=== PATIENT | female | born 1940 | race Caucasian/White ===

== ENCOUNTER → 2021-05-22 | Outpatient (CLI) | payer MEDICARE | END | disposition home or self-care (01) | LOC: RAH 11:15 | PROVIDERS: ATTEND Nurse Practitioner Adult Health | DX: E04.1 Nontoxic single thyroid nodule (principal); R91.1 Solitary pulmonary nodule | CPT/HCPCS: 76536 ==

== ENCOUNTER → 2021-05-26 | Outpatient (CLI) | payer MEDICARE | END | disposition home or self-care (01) | LOC: RAH 13:08 | PROVIDERS: ATTEND Nurse Practitioner Adult Health | DX: Z12.31 Encounter for screening mammogram for malignant neoplasm of breast (principal) | CPT/HCPCS: 77067 ==

== ENCOUNTER → 2022-12-25 | Outpatient (CLI) | payer OTHER | END | disposition home or self-care (01) | LOC: RAH 08:36 | PROVIDERS: ATTEND Nurse Practitioner Adult Health | DX: N64.4 Mastodynia (principal); Z80.3 Family history of malignant neoplasm of breast | CPT/HCPCS: 76641; 77066 ==

== ENCOUNTER → 2023-08-05 | Outpatient (CLI) | payer OTHER | END | disposition home or self-care (01) | LOC: OIH 09:22 | PROVIDERS: ATTEND Nurse Practitioner Adult Health | DX: Z13.6 Encounter for screening for cardiovascular disorders (principal); K44.9 Diaphragmatic hernia without obstruction or gangrene | CPT/HCPCS: 75571 ==

== ENCOUNTER → 2023-09-13 | Outpatient (CLI) | payer OTHER ==
[2023-09-13 16:36] LABS: BILIRUBIN,TOTAL 0.4 mg/dL (0.2-1.0)
== END | disposition home or self-care (01) ==
LOC: LAB 15:32
PROVIDERS: ATTEND Student in an Organized Health Care Education/Training Program
DX: R07.89 Other chest pain (principal)
CPT/HCPCS: 36415; 80053

== ENCOUNTER → 2023-09-24 | Outpatient (CLI) | payer OTHER ==
[~2023-09-24] MED LIST: IOHEXOL 350 MG/ML 100ML INFUS..BTL IV ONE
== END | disposition home or self-care (01) ==
LOC: RAH 10:09
PROVIDERS: ATTEND Student in an Organized Health Care Education/Training Program
DX: I25.10 Atherosclerotic heart disease of native coronary artery without angina pectoris (principal); R07.89 Other chest pain; M47.815 Spondylosis without myelopathy or radiculopathy, thoracolumbar region
CPT/HCPCS: 75574; Q9967

== ENCOUNTER → 2023-09-25 | Outpatient (CLI) | payer OTHER | END | disposition home or self-care (01) | LOC: SHCH 11:10 | PROVIDERS: ATTEND Student in an Organized Health Care Education/Training Program | DX: R09.89 Other specified symptoms and signs involving the circulatory and respiratory systems (principal) | CPT/HCPCS: 93880 ==

== ENCOUNTER → 2023-11-01 | Outpatient (CLI) | payer OTHER | END | disposition home or self-care (01) | LOC: SHCH 10:42 | PROVIDERS: ATTEND Student in an Organized Health Care Education/Training Program | DX: I11.9 Hypertensive heart disease without heart failure (principal); R07.89 Other chest pain; E78.5 Hyperlipidemia, unspecified | CPT/HCPCS: 93306 ==

== ENCOUNTER 2023-12-13 05:52 | Day surgery (SDC) | payer OTHER ==
[2023-12-10 10:05] LABS: BASOPHILS # (AUTO) 0.02 K/uL (0.00-0.20); BASOPHILS % (AUTO) 0.3 % (0.0-5.0); EOSINOPHILS # (AUTO) 0.11 K/uL (0.00-0.70); EOSINOPHILS % (AUTO) 1.6 % (0.0-8.0); HEMATOCRIT 41.5 % (36-48); IMMATURE GRANULOCYTE ABSOLUTE 0.02 K/uL (0-1); LYMPHOCYTES # (AUTO) 1.9 K/uL (1.0-4.8); LYMPHOCYTES % (AUTO) 26.8 % (21.0-51.0); MEAN CORPUSCULAR HEMOGLOBIN 30.1 pg (27.0-33.0); MEAN CORPUSCULAR VOLUME 91.2 fL (79-99); MONOCYTES # (AUTO) 0.4 K/uL (0.1-1.0); MONOCYTES % (AUTO) 6.3 % (3.0-13.0); NEUTROPHILS # (AUTO) 4.5 K/uL (1.8-7.7); NEUTROPHILS % (AUTO) 64.7 % (40.0-77.0); PLATELET COUNT (AUTO) 357 K/uL (130-400); RED BLOOD CELL COUNT(AUTO) 4.55 MIL/uL (4.00-5.50); RED CELL DISTRIBUTION WIDTH 13.2 % (11.0-15.5)
[2023-12-10 10:12] LABS: POTASSIUM 3.8 mmol/L (3.5-5.1)
[2023-12-10 10:13] LABS: INR 0.95 (0.85-1.15); PROTHROMBIN TIME 11.1 SEC (9.6-11.6)
[2023-12-10 10:14] LABS: PARTIAL THROMBOPLASTIN TIME 29.5 SEC (26.3-35.5)
[2023-12-10 10:16] LABS: ADD UA MICROSCOPIC YES; APPEARANCE,URINE CLEAR (CLEAR); BILIRUBIN,URINE NEGATIVE (NEGATIVE); COLOR,URINE LIGHT-YELLOW (YELLOW); GLUCOSE, URINE (UA) NEGATIVE (NEGATIVE); KETONES,URINE NEGATIVE (NEGATIVE); LEUKOCYTE ESTERASE ,URINE NEGATIVE Leu/uL (NEGATIVE); NITRATE,URINE NEGATIVE (NEGATIVE); PROTEIN,URINE NEGATIVE (NEGATIVE); UROBILINOGEN,URINE 0.2 mg/dL (0.2-1.0)
[2023-12-10 10:21] VITALS: BP 172/76; PULSE 61; RESP 15
[2023-12-10 10:22] LABS: BACTERIA,URINE RARE /HPF (None Seen); MUCUS,URINE RARE LPF (None Seen); SQUAMOUS EPITHELIAL CELL,UR FEW /HPF (0-2); WBC,URINE 0-1 /HPF (0-1)
[2023-12-10 10:32] LABS: B-TYPE NATRIURETIC PEPTIDE 38 pg/mL (0-100)
[~2023-12-13] VITALS: Ht 170.2 cm; Wt 80.3 kg
[2023-12-13] VITALS (10 sets, daily range): BP systolic 100–171; BP diastolic 32–62; PULSE 46–81; RESP 14–16
[~2023-12-13 05:52] MED LIST changes: +ASPI-1197 PO; +ATOR10 PO; -IOHEXOL 350 MG/ML 100ML INFUS..BTL IV ONE; +LISI20TA24 PO
[2023-12-13] MEDS ORDERED: ACET-3540 PO (06:40)
[2023-12-13] MEDS: 0.9%NACL 1000ML 1,000 ML IV ONE (06:47)
[2023-12-13] MEDS ORDERED: HEPARIN 10,000 UNIT/10ML (1,000 UNIT/ML) VIAL ONE (07:09)
[2023-12-13] MEDS ORDERED: VERAPAMIL HCL 2.5 MG/ML VIAL ONE (07:09)
[2023-12-13] MEDS ORDERED: LIDOCAINE HCL 400MG/20ML VIAL ONE (07:09)
[2023-12-13] MEDS ORDERED: IOHEXOL-350 75 ML VIAL IV ONE (07:09)
[2023-12-13] MEDS ORDERED: NITROGLYCERIN 50MG VIAL ONE (07:10)
[2023-12-13] MEDS ORDERED: MIDAZOLAM HCL 5 MG/ML 2ML VIAL IV ONE (07:23)
[2023-12-13] MEDS ORDERED: FENTANYL CITRATE PF 50 MCG/1 ML 2ML VIAL ONE (07:23)
[2023-12-13] MEDS ORDERED: HYDRALAZINE 20MG/ML VIAL ONE ×2 (08:18→08:31)
[2023-12-13] MEDS ORDERED: LABETALOL 20MG SYG IV ONE (08:22)
[2023-12-13] MEDS ORDERED: DEXTROSE 50%-WATER 50 ML DISP.SYRIN IV PRN (09:00)
[2023-12-13] MEDS ORDERED: GLUCAGON 1MG KIT 1 MG ML IM PRN (09:00)
== END 2023-12-13 12:20 | disposition home or self-care (01) ==
LOC: DAH 05:52
PROVIDERS: ATTEND Student in an Organized Health Care Education/Training Program
DX: I25.119 Atherosclerotic heart disease of native coronary artery with unspecified angina pectoris (principal); I77.1 Stricture of artery; Z79.82 Long term (current) use of aspirin; Z79.01 Long term (current) use of anticoagulants; Z79.899 Other long term (current) drug therapy; Z82.49 Family history of ischemic heart disease and other diseases of the circulatory system; Z80.9 Family history of malignant neoplasm, unspecified
CPT/HCPCS: 80048; 83880; 85025; 85610; 85730; 81001; 36415; 71045; 93005; 93458; C1769; C1887; C1894; A4649; J3010; J3490 ×3; J7030; J0360 ×2; J1644 ×2; J2250; Q9967; A4215; A4222; A4221; A4663; A4216; A4606; A4223 ×3; A4554; 99156; 99157

== ENCOUNTER → 2024-01-06 | Outpatient (CLI) | payer OTHER ==
[~2024-01-06] MED LIST changes: +ACET-3540 PO; +IOHEXOL 350 MG/ML 100ML INFUS..BTL IV ONE
== END | disposition home or self-care (01) ==
LOC: RAH 08:28
PROVIDERS: ATTEND Student in an Organized Health Care Education/Training Program
DX: I70.0 Atherosclerosis of aorta (principal); I77.1 Stricture of artery; K80.20 Calculus of gallbladder without cholecystitis without obstruction
CPT/HCPCS: 71275; Q9967

== ENCOUNTER 2025-07-16 19:29 | Observation (INO) | payer OTHER ==
[~2025-07-16] VITALS: Ht 165.1 cm; Wt 80.2 kg
[~2025-07-16 19:29] MED LIST changes: -IOHEXOL 350 MG/ML 100ML INFUS..BTL IV ONE
--- NOTE | 2025-07-16 19:38 | ERN ---
ED Note History of Present Illness Stated Complaint: ELEVATED BP Chief Complaint: Hypertension Time Seen by MD: 19:33 Dictation: PATIENT IS AN 84-YEAR-OLD FEMALE COMING IN WITH HER WITH COMPLAINTS OF ELEVATED BLOOD PRESSURE AND A SEVERE OCCIPITAL HEADACHE BILATERALLY FOR TWO DAYS. SHE STATES THE HEADACHE HAS GOTTEN PROGRESSIVELY WORSE AND STATES IT WAS A GRADUAL ONSET THE DAY IT OCCURRED BUT IT HAS NEVER GOTTEN BETTER. NIH IS 0 THERE HAS BEEN NO NAUSEA VOMITING NO DIARRHEA. SHE IS ON LISINOPRIL 20 MG STATES SHE IS COMPLIANT WITH HER MEDICATIONS. SHE DENIES HEAD TRAUMA FALLS OR BLOOD THINNERS. CURRENT BLOOD PRESSURE 212/87 IN TRIAGE Allergies: Coded Allergies: No Known Drug Allergies (Unverified Allergy, Unknown, 12/10/23) Home Meds Reported Medications Acetaminophen/Diphenhydramine (Tylenol Pm Exstr 500-25Mg Cplt) 500 Mg-25 Mg Tablet, 1 EACH PO HS, TAB 12/13/23 Atorvastatin Calcium (LIPITOR) 20 Mg Tab, 20 MG PO HS, TAB 12/10/23 Aspirin (Aspirin) 81 Mg Tab.chew, 81 MG PO AD, TAB.CHEW 12/10/23 Lisinopril (Lisinopril) 20 Mg Tablet, 20 MG PO AD, TAB 12/10/23 Review of System Dictation CONSTITUTIONAL: NO CHILLS, NO FEVER, NO WEAKNESS, NO DIAPHORESIS, NO MALAISE. HEAD/FACE: NO SIGNS OF TRAUMA. HEADACHE OCCIPITAL EENT: NO EYE PAIN, NO BLURRED VISION, NO TEARING, NO DOUBLE VISION, NO EAR PAIN, NO EAR DISCHARGE, NO NOSE PAIN, NO NASAL CONGESTION, NO THROAT PAIN, NO THROAT SWELLING, NO MOUTH PAIN. RESPIRATORY: NO COUGH, NO ORTHOPNEA, NO SOB, NO STRIDOR, NO WHEEZING. CARDIOVASCULAR: NO CHEST PAIN, NO EDEMA, NO PALPITATIONS, NO SYNCOPE. GASTROINTESTINAL/ABDOMINAL: NO ABDOMINAL PAIN, NO CONSTIPATION, NO DIARRHEA, NO NAUSEA, NO VOMITING. GENITOURINARY: NO ABNORMAL DISCHARGE, NO DYSURIA, NO FREQUENT URINATION, NO HEMATURIA. NO COMPLAINTS OF PAIN IN THE GENITALS. MUSCULOSKELETAL: NO BACK PAIN, NO GOUT, NO JOINT PAIN, NO JOINT SWELLING, NO MUSCLE PAIN, NO MUSCLE STIFFNESS, NO NECK PAIN. INTEGUMENTARY: NO CHANGE IN COLOR, NO CHANGE IN HAIR/NAILS, NO DRYNESS, NO LESION, NO LUMPS, NO RASH. NEUROLOGICAL/PSYCH: NO ANXIETY, NOT DEPRESSED, NO EMOTIONAL PROBLEM, NO HEADACHE, NO NUMBNESS, NO PRE-EXISTING DEFICIT, NO HISTORY OF SEIZURES, NO TREMORS, NO WEAKNESS. HEMATOLOGIC/LYMPHATIC: NOT ANEMIC, NO HISTORY OF BLOOD CLOTS, NO APPARENT BLEEDING, NO BRUISING, GLANDS NOT SWOLLEN. ALL SYSTEMS NEGATIVE, EXCEPT NOTED. Initial Vital Sign VS Vital Signs Date Time Temp Pulse Resp B/P (MAP) Pulse Ox O2 Delivery O2 Flow Rate FiO2 07/16/25 19:30 98.6 95 18 212/87 99 07/16/25 20:02 Room Air* 0 21 Physical Exam Dictation VITAL SIGNS: REVIEWED. GENERAL APPEARANCE: ALERT, ORIENTED X3, NO ACUTE DISTRESS, OBESE. HEAD AND FACE: NON-TRAUMATIC. EYES: PERRL, PINK CONJUNCTIVAS, EYELID NO TRAUMA, ANTERIOR CHAMBER CLEAR. EARS: PINNAS INTACT AND NO SIGNS OF TRAUMA OR ERYTHEMA. EAR CANALS CLEAR AND NO DISCHARGE. TMS NO ERYTHEMA. NOSE: NO DISCHARGE, NO BLEEDING. OROPHARYNX: MOUTH NORMAL, TEETH NO CARIES, TONGUE PINK. PHARYNX CLEAR, NO ERYTHEMA. TONSILS NO EXUDATES, NO ABSCESSES NOTED. MUCOUS MEMBRANE MOIST. NECK: SUPPLE, NON-TENDER, NO THYROMEGALY, NO MASSES, NO JVD, NO BRUITS. BREAST: DEFERRED. CHEST: NO TENDERNESS, NO CREPITUS, NO PARADOXICAL MOVEMENT, NO RETRACTIONS. LUNGS: CLEAR, WELL-VENTILATED, SYMMETRIC, NO RALES, NO WHEEZING, NO RHONCHI, NO STRIDOR, GOOD BREATH SOUNDS BILATERALLY. HEART: REGULAR RATE, REGULAR RHYTHM, NO MURMUR, NO GALLOPS. VASCULAR: NO PERIPHERAL EDEMA. ABDOMEN: SOFT, POSITIVE BOWEL SOUNDS, NONDISTENDED, NO GUARDING, NONTENDER, NO REBOUND, NO MASSES NO HEPATOMEGALY, NO SPLENOMEGALY, NO HARTMANN'S SIGN, NO HERNIAS. RECTAL: DEFERRED. GENITAL: DEFERRED. NEUROLOGICAL: NORMAL SPEECH, GROSS MOTOR FUNCTION INTACT, GROSS SENSORY FUNCTION INTACT. MUSCULOSKELETAL: NECK NONTENDER, FULL RANGE OF MOTION, BACK NONTENDER, FULL RANGE OF MOTION. EXTREMITIES: NONTENDER, FULL RANGE OF MOTION. SKIN: COLOR PINK, DRY, NO TURGOR, NO RASH, NO LACERATIONS, NO ABRASIONS, NO CONTUSIONS. LYMPHATICS: DEFERRED. Results (Laboratory/Radiology) Laboratory/Radiology Laboratory Tests Test 07/16/25 19:49 07/16/25 19:51 White Blood Count 12.4 K/uL (4.8-10.8) H Red Blood Count 4.48 MIL/uL (4.00-5.50) Hemoglobin 13.6 g/dL (12.0-16.0) Hematocrit 41.9 % (36-48) Mean Corpuscular Volume 93.5 fL (79-99) Mean Corpuscular Hemoglobin 30.4 pg (27.0-33.0) Mean Corpuscular Hemoglobin Concent 32.5 g/dL (32.0-36.0) Red Cell Distribution Width 13.3 % (11.0-15.5) Platelet Count 344 K/uL (130-400) Mean Platelet Volume 9.5 fL (7.5-10.5) Immature Granulocyte % (Auto) 0.2 % (0-1) Neutrophils (%) (Auto) 71.4 % (40.0-77.0) Lymphocytes (%) (Auto) 22.0 % (21.0-51.0) Monocytes (%) (Auto) 5.0 % (3.0-13.0) Eosinophils (%) (Auto) 1.2 % (0.0-8.0) Basophils (%) (Auto) 0.2 % (0.0-5.0) Neutrophils # (Auto) 8.8 K/uL (1.8-7.7) H Lymphocytes # (Auto) 2.7 K/uL (1.0-4.8) Monocytes # (Auto) 0.6 K/uL (0.1-1.0) Eosinophils # (Auto) 0.15 K/uL (0.00-0.70) Basophils # (Auto) 0.03 K/uL (0.00-0.20) Absolute Immature Granulocyte (auto 0.03 K/uL (0-1) Nucleated Red Blood Cells 0.0 % (0.0-0.19) Sodium Level 142 mmol/L (136-145) Potassium Level 3.6 mmol/L (3.5-5.1) Chloride Level 105 mmol/L (101-111) Carbon Dioxide Level 27 mmol/L (21-32) Blood Urea Nitrogen 17 mg/dL (7-18) Creatinine 0.9 mg/dL (0.5-1.0) Glomerular Filtration Rate Calc 64 mL/min (>90) Random Glucose 119 mg/dL (70-105) H Total Calcium 9.3 mg/dL (8.5-10.1) Troponin I High Sensitivity 6 ng/L (4-50) B-Type Natriuretic Peptide 81 pg/mL (0-100) Urine Color COLORLESS (YELLOW) Urine Appearance CLEAR (CLEAR) Urine pH 5.0 (5.0-8.0) Urine Specific [place] 1.009 (1.001-1.031) Urine Protein NEGATIVE mg/dL (NEGATIVE) Urine Glucose (UA) NEGATIVE mg/dL (NEGATIVE) Urine Ketones NEGATIVE mg/dL (NEGATIVE) Urine Occult Blood SMALL (NEGATIVE) H Urine Nitrate NEGATIVE (NEGATIVE) Urine Bilirubin NEGATIVE mg/dL (NEGATIVE) Urine Urobilinogen 0.2 mg/dL (0.2-1.0) Urine Leukocyte Esterase 75 Unique/uL (NEGATIVE) H Urine RBC 2-5 /HPF (0-1) H Urine WBC 2-5 /HPF (0-1) H Urine Squamous Epithelial Cells RARE /HPF (0-2) Urine Bacteria FEW /HPF (None Seen) Labs Reviewed?: Yes EKG Comment: 07/16/2025 time 7:33 p.m. Ventricular rate 92 Sinus rhythm NM [address] wave elevation or depression ED Course ED Course Orders Procedure Category Date Status Time Ct Head/Brain W/O CT 07/16/25 Taken Contrast 19:36 B-Type Natriuretic LAB 07/16/25 Complete Peptide 19:36 Cbc With Differential LAB 07/16/25 Complete 19:36 Troponin I High LAB 07/16/25 Complete Sensitivity 19:36 12 Lead Ekg Tracing- EKG 07/16/25 Logged Technical 19:36 Basic Metabolic Panel LAB 07/16/25 Complete 19:36 Urinalysis LAB 07/16/25 Complete W/Microscopic 19:39 Culture Urine DEMETRI 07/16/25 In Process 20:09 Labetalol 20mg Syg PHA 07/16/25 Complete (Trandate 20mg Syg) 20:30 0.9%Nacl 1000ml (Ns PHA 07/16/25 Complete 1000ml) 21:00 Diphenhydramine Hcl PHA 07/16/25 Complete (Benadryl Inj) 21:00 Prochlorperazine PHA 07/16/25 Complete 10mg/2ml Inj 21:00 Acetaminophen 500mg PHA 07/16/25 Complete Tab (Tylenol 500mg T 21:00 Ceftriaxone 1g Vial PHA 07/16/25 Complete (Rocephine 1g Inj) 21:00 Current Medications Medications (Trade) Dose Ordered Sig/Arianna Route PRN Reason Start Time Stop Time Status Last Admin Dose Admin Acetaminophen (TYLenol 500MG TAB) 500 mg ONCE ONCE PO 07/16/25 21:00 07/16/25 21:04 DC 07/16/25 21:27 Ceftriaxone Sodium (ROCEphine 1G INJ) 1 gm ONCE ONCE IVPB 07/16/25 21:00 07/16/25 21:04 DC 07/16/25 21:26 Diphenhydramine HCl (BENAdryl INJ) 25 mg ONCE ONCE IV 07/16/25 21:00 07/16/25 21:04 DC 07/16/25 21:27 Labetalol HCl (TRANdate 20MG SYG) 10 mg ONCE ONCE IV 07/16/25 20:30 07/16/25 20:31 DC 07/16/25 20:52 Prochlorperazine Edisylate (Compazine 10mg/ 2ml Inj) 10 mg ONCE ONCE IV 07/16/25 21:00 07/16/25 21:12 DC 07/16/25 21:27 Sodium Chloride 1,000 ml @ 0 mls/hr ONCE ONCE IV 07/16/25 21:00 07/16/25 21:04 DC 07/16/25 21:27 Vital Signs Date Time Temp Pulse Resp B/P (MAP) Pulse Ox O2 Delivery O2 Flow Rate FiO2 07/16/25 20:54 98.2 76 20 174/70 99 Room Air* 0 21 07/16/25 20:52 192/78 07/16/25 20:02 98.4 92 18 212/87 98 Room Air* 0 21 07/16/25 19:30 98.6 95 18 212/87 99 Medical Decision Making MDM MDM: DIFFERENTIAL DIAGNOSIS: DEHYDRATION, UTI, TENSION HEADACHE, MALIGNANT HYPE RTENSION, RATIONALE: TESTS CONSIDERED AND ORDERED SECONDARY TO SHARED DECISION MAKING INCLUDE: LABS, ECG AND RADIOLOGY PREVIOUS OUTSIDE RECORDS REVIEWED: OLD ER VISITS. RISK OF COMPLICATION AND/OR MORBIDITY OR MORTALITY OF PATIENT MANAGEMENT: NONE MEDICATIONS-PER MEDICATION RECONCILIATION NEED FOR HOSPITALIZATION: PATIENT DOES MEET CRITERIA FOR HOSPITALIZATION. NEED FOR EMERGENCY MAJOR/MINOR SURGERY: NO THERE ARE NO SOCIAL CONCERNS WITH THIS PATIENT. PRESCRIPTION DRUG MANAGEMENT PRESCRIPTIONS WILL INCLUDE SYMPTOMATIC CARE PATIENT'S PRIOR EXTERNAL MEDICAL RECORDS FROM OTHER ER VISITS WERE REVIEWED BY ME INDICATED. PRIOR TESTING AND RESULTS FROM PREVIOUS VISITS WERE REVIEWED. PRIOR TESTS WERE TAKEN INTO ACCOUNT WITH MEDICAL DECISION MAKING AND RESOURCE UTILIZATION, INDEPENDENT HISTORIAN/HISTORIANS WERE USED TO OBTAIN COMPLETE MEDICAL HISTORY. I INDEPENDENTLY INTERPRETED THE TEST THAT WERE PERFORMED, RESULTS WERE REVIEWED BY ME AND CONSIDERED FINDINGS ON RADIOLOGY IF ORDERED. MEDICAL MANAGEMENT AND EXAMINATION INTERPRETATION DISCUSSIONS WERE HAD BY ME WITH OTHER QUALIFIED HEALTHCARE PROFESSIONALS INDICATED FOR THE PATIENT'S CARE. HE WILL BE ADMITTED UNDER THE CARE OF HOSPITALIST GROUP FOR ONGOING MANAGEMENT. DX & DISP Disposition: Inpatient Decision to Admit Time: 21:49 Departure Impression: Primary Impression: UTI (urinary tract infection) Additional Impressions: Dehydration, Malignant hypertension, Tension headache Condition: Stable Referrals: [facility] CROWN POUNCER (PCP) LAWANDA FOX NP Jul 16, 2025 19:38 LETICIA PLASCENCIA MD Jul 16, 2025 19:42
[2025-07-16 20:02] LABS: IMMATURE GRANULOCYTE ABSOLUTE 0.03 K/uL (0-1); NUCLEATED RED BLOOD CELLS 0.0 % (0.0-0.19); PLATELET COUNT (AUTO) 344 K/uL (130-400); RED BLOOD CELL COUNT(AUTO) 4.48 MIL/uL (4.00-5.50); RED CELL DISTRIBUTION WIDTH 13.3 % (11.0-15.5); WHITE BLOOD COUNT (AUTO) 12.4 K/uL (4.8-10.8)
[2025-07-16 20:05] LABS: APPEARANCE,URINE CLEAR (CLEAR); GLUCOSE, URINE (UA) NEGATIVE (NEGATIVE); LEUKOCYTE ESTERASE ,URINE 75 Leu/uL (NEGATIVE); NITRATE,URINE NEGATIVE (NEGATIVE); OCCULT BLOOD,URINE SMALL (NEGATIVE)
[2025-07-16 20:17] LABS: CREATININE 0.9 mg/dL (0.5-1.0); GLOMERULAR FILTR. RATE CALC 64.0 mL/min (>90); GLUCOSE,RANDOM 119.0 mg/dL (70-105); SODIUM SERUM 142.0 mmol/L (136-145); UREA NITROGEN, BLOOD 17.0 mg/dL (7-18)
[2025-07-16 20:33] LABS: SQUAMOUS EPITHELIAL CELL,UR RARE /HPF (0-2)
[2025-07-16] MEDS: PROCHLORPERAZINE 10MG/2ML INJ IV ONE (21:27)
[2025-07-16] MEDS: 0.9%NACL 1000ML 1,000 ML IV ONE (21:27)
--- NOTE | 2025-07-16 21:53 | HMCIMG ---
EXAM: CT Head Without IV contrast. CLINICAL HISTORY: Severe occipital headache for 2 days. TECHNIQUE: Axial computed tomography images of the head/brain without intravenous contrast. COMPARISON: None provided. FINDINGS: BRAIN: Diffuse age-related cerebral atrophy, characterized by dilatation of the lateral ventricles, prominence of the basal cisterns, cortical sulci, and bilateral sylvian fissures. Ill-defined hypodensities in the bilateral periventricular and frontal white matter, likely representing chronic small vessel ischemic changes. No evidence of acute hemorrhage. No mass lesion. No CT evidence for acute territorial infarct. No midline shift or extra-axial collections. VENTRICLES: No hydrocephalus. ORBITS: The orbits are unremarkable. SINUSES AND MASTOIDS: The paranasal sinuses and mastoid air cells are clear. BONES: No fracture. SOFT TISSUES: Unremarkable. IMPRESSION: No acute intracranial abnormality. Diffuse age-related cerebral atrophy. Ill-defined hypodensities in the bilateral periventricular and frontal white matter, likely representing chronic small vessel ischemic changes. /[place]
--- NOTE | 2025-07-16 22:59 | HP ---
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 Latest vital signs temperature 98.2, heart rate 72, blood pressure 180/75 saturation 99% on room air. Labs: WBC 12, hemoglobin 13, hematocrit 41, platelet count 344. Glucose 119 troponin six BNP 81 the rest of the chemistries normal. Urinalysis positive with esterase, urine RBC 2-5, urine WBC 2-5 with few urine bacteria. EKG result revealed sinus rhythm heart rate 92. CT head without contrast result revealed no acute intracranial abnormality. Diffuse age-related cerebral atrophy. Defined hypodensities in the bilateral periventricular and frontal white matter, likely representing chronic small- vessel ischemic changes. NIHS score=0 While in the ER patient received labetalol 10 mg IV, NS bolus 1 L, D-hydro mean 25 mg IV, Compazine 10 mg IV Tylenol 500 mg p.o. and Rocephin 1 g IV. We will admit patient for further medical management. REVIEW OF SYSTEMS CONSTITUTIONAL: Denies fevers, chills, or night sweats. No unintentional weight loss reported. NEUROLOGICAL: Complains of headache Deniesamaurosis fugax, motor weakness, sensory deficit, vertigo/spinning sensation, gait abnormalities, or tremors. ENT: No hearing loss, otalgia, otorrhea, rhinitis, rhinorrhea, hoarseness, or sore throat. CARDIOVASCULAR: Denies any exertional angina, dyspnea on exertion, orthopnea, paroxysmal nocturnal dyspnea, palpitations, life-threatening arrhythmias, claudication. PULMONARY: Denies any shortness of breath, cough, phlegm/sputum, hemoptysis, pleuritic chest pain. SLEEP: Denies morning headaches, daytime somnolence or napping. Denies difficulty falling asleep, staying asleep, waking from sleep. Denies knowledge of snoring. GASTROINTESTINAL: Denies any type of dysphagia to either liquids or solids. Denies nausea, vomiting, pyrosis, early satiety, abdominal pain, diarrhea, constipation, or changes in stool consistency or caliber. Denies coffee-ground emesis, hematemesis, hematochezia, or melanotic stools. GENITOURINARY: Denies frequency, urgency, nocturia, hematuria or incontinence (Storage/Irritative symptoms.) Low urinary stream, straining to void, urinary intermittency or hesitancy, splitting of the voiding stream, terminal dribbling. ENDOCRINOLOGIC: Denies polyuria, polydipsia, polyphagia or heat/cold intolerances. HEMATOLOGIC: Denies thrombophilia/previous clots, or coagulopathy/bleeding disorders. ONCOLOGIC: Denies personal history of malignancy. DERMATOLOGIC: Denies rashes or pruritus. PSYCHIATRIC: Denies any suicidal or homicidal ideation. Denies hallucinations. PAST MEDICAL HISTORY: [ Hypertension and hyperlipidemia ] PAST SURGICAL HISTORY: [Bladder lift and skin cancer removal ] PAST SOCIAL HISTORY: [ Patient lives with . Patient denies alcohol tobacco and recreational drug use ] FAMILY HISTORY: [ Diabetes, cardiovascular disease and cancer] Coded Allergies: No Known Drug Allergies (Unverified Allergy, Unknown, 12/10/23) PHYSICAL EXAM GENERAL APPEARANCE: The patient is awake, alert, and oriented, in no acute cardiopulmonary distress. NEUROLOGICAL: Cranial nerves II-XII grossly intact. Motor is 5/5 in bilateral upper and lower extremities proximal to distal. No sensory deficits. HEENT: Face is symmetric. Pupils are equal and reactive. Extraocular movements are intact. NECK: Supple. No JVD. No thyromegaly. No submental, submandibular, pre- /postauricular, occipital or supraclavicular lymphadenopathy. CHEST: Normal chest expansion. No Telemetry. LUNGS: Absence of any rales, rhonchi or any wheezing. CARDIOVASCULAR: Regular. S1 and S2 normal. No appreciable rubs, murmurs or gallops. ABDOMEN: Soft, nontender, and nondistended. There is no rebound, voluntary guarding, or rigidity. : Deferred. No Garcia. EXTREMITIES: Non-edematous and not cyanotic. No clubbing. Good capillary refill. SKIN: No skin breakdown. Vital Sign (Last 24 Hours) 07/16/25 22:32 Temp 98.2 Pulse 72 Resp 20 B/P (MAP) 180/75 Pulse Ox 99 O2 Delivery Room Air* O2 Flow Rate 0 FiO2 21 LABS: Laboratory: Test 07/16/25 19:51 07/16/25 19:49 Range/Units Urine Color COLORLESS YELLOW Urine Appearance CLEAR CLEAR Urine pH 5.0 5.0-8.0 Urine Specific [place] 1.009 1.001-1.031 Urine Protein NEGATIVE NEGATIVE mg/dL Urine Glucose (UA) NEGATIVE NEGATIVE mg/dL Urine Ketones NEGATIVE NEGATIVE mg/dL Urine Occult Blood SMALL H NEGATIVE Urine Nitrate NEGATIVE NEGATIVE Urine Bilirubin NEGATIVE NEGATIVE mg/dL Urine Urobilinogen 0.2 0.2-1.0 mg/dL Urine Leukocyte Esterase 75 H NEGATIVE Unique/uL Urine RBC 2-5 H 0-1 /HPF Urine WBC 2-5 H 0-1 /HPF Urine Squamous Epithelial Cells RARE 0-2 /HPF Urine Bacteria FEW None Seen /HPF White Blood Count 12.4 H 4.8-10.8 K/uL Red Blood Count 4.48 4.00-5.50 MIL/uL Hemoglobin 13.6 12.0-16.0 g/dL Hematocrit 41.9 36-48 % Mean Corpuscular Volume 93.5 79-99 fL Mean Corpuscular Hemoglobin 30.4 27.0-33.0 pg Mean Corpuscular Hemoglobin Concent 32.5 32.0-36.0 g/dL Red Cell Distribution Width 13.3 11.0-15.5 % Platelet Count 344 130-400 K/uL Mean Platelet Volume 9.5 7.5-10.5 fL Immature Granulocyte % (Auto) 0.2 0-1 % Neutrophils (%) (Auto) 71.4 40.0-77.0 % Lymphocytes (%) (Auto) 22.0 21.0-51.0 % Monocytes (%) (Auto) 5.0 3.0-13.0 % Eosinophils (%) (Auto) 1.2 0.0-8.0 % Basophils (%) (Auto) 0.2 0.0-5.0 % Neutrophils # (Auto) 8.8 H 1.8-7.7 K/uL Lymphocytes # (Auto) 2.7 1.0-4.8 K/uL Monocytes # (Auto) 0.6 0.1-1.0 K/uL Eosinophils # (Auto) 0.15 0.00-0.70 K/uL Basophils # (Auto) 0.03 0.00-0.20 K/uL Absolute Immature Granulocyte (auto 0.03 0-1 K/uL Nucleated Red Blood Cells 0.0 0.0-0.19 % Sodium Level 142 136-145 mmol/L Potassium Level 3.6 3.5-5.1 mmol/L Chloride Level 105 101-111 mmol/L Carbon Dioxide Level 27 21-32 mmol/L Blood Urea Nitrogen 17 7-18 mg/dL Creatinine 0.9 0.5-1.0 mg/dL Glomerular Filtration Rate Calc 64 >90 mL/min Random Glucose 119 H 70-105 mg/dL Total Calcium 9.3 8.5-10.1 mg/dL Troponin I High Sensitivity 6 4-50 ng/L B-Type Natriuretic Peptide 81 0-100 pg/mL DIAGNOSTICS / RADIOLOGY: [ ] ASSESSMENT: Hypertensive urgency POA Acute urinary tract infection POA Tension headache POA Hyperlipidemia POA PLAN: We will admit patient in P[facility]U We will start on heart healthy diet We will start on famotidine 20 mg p.o. daily We will continue Rocephin 1 g IV daily for empiric coverage We will replace electrolytes as needed per protocol We will add prn medication for fever,pain,cough , elevated blood pressure, nausea and vomiting We will reconcile home meds once medlist available We will request neuro check q.4 hours per nursing We will seek Cardiology consultation We will request labs in am Further orders to follow depending on above results Case discussed with attending physician and came up with above treatment and plan of care. ADVANCED CARE PLANNING 1. Which of the following were discussed? Hospice Care - No Therapeutic options - Yes Advance Directives - No Other discussions - 2. Discussed with who? Patient 3. Voluntary nature of this service was explained to the patient? Yes 4. Amount of time spent - __23 min 5. Reviewed by Physician? (if this service was performed by NPP) Yes Patient seen and examined by me. Agree with note by AGRICULTURE RESEARCH DIRECTOR SEE ADDITIONAL ORDERS PER CHART DISCUSSED WITH NURSING STAFF JENELLE SCHMITZ INNER TUBE CUTTER Jul 16, 2025 22:59
[2025-07-16] MEDS ORDERED: NITROGLYCERIN 0.4 MG SL TAB SL PRN (23:00)
[2025-07-16] MEDS ORDERED: PoTASSium chl 10% ELIXIR 20MEQ 20 MEQ/15 ML UDCUP PO PRN (23:00)
[2025-07-16] MEDS ORDERED: PoTASSium chloRIDE 20MEQ ER 20 MEQ ERTAB PO PRN (23:00)
--- NOTE | 2025-07-17 01:36 | NUR ---
assume care of patient at this time
[2025-07-17] MEDS: HYDROcodone/APAP 5/325 1 TAB TABLET PO PRN (03:55)
[2025-07-17 05:52] LABS: IMMATURE GRANULOCYTE ABSOLUTE 0.03 K/uL (0-1); NUCLEATED RED BLOOD CELLS 0.0 % (0.0-0.19); PLATELET COUNT (AUTO) 335 K/uL (130-400); RED BLOOD CELL COUNT(AUTO) 4.09 MIL/uL (4.00-5.50); RED CELL DISTRIBUTION WIDTH 13.2 % (11.0-15.5); WHITE BLOOD COUNT (AUTO) 11.0 K/uL (4.8-10.8)
[2025-07-17 06:08] LABS: ASPARTATE AMINOTRANSFERASE 28.0 U/L (10-37); CREATININE 0.6 mg/dL (0.5-1.0); GLOMERULAR FILTR. RATE CALC 90.0 mL/min (>90); GLUCOSE,RANDOM 137.0 mg/dL (70-105); SODIUM SERUM 143.0 mmol/L (136-145); TOTAL PROTEIN, SERUM 6.7 g/dL (6.0-8.3); UREA NITROGEN, BLOOD 13.0 mg/dL (7-18)
[2025-07-17 06:09] LABS: INR 1.01 (0.85-1.15)
[2025-07-17 06:13] LABS: ERYTHROCYTE SEDIMENTATION RATE 30 MM/HR (0-30)
--- NOTE | 2025-07-17 07:15 | EKG ---
[facility] Test Date: 2025-07-16 Test Time: 19:33:48 Pat Name: OK VAUGHN Department: [facility] Room: 227 Gender: F Rn Family: [id number] Requested By: LAWANDA FOX Order Number: [id number] Reading MD: Leola Webb Measurements Intervals [place] Rate: 92 P: 43 MS: 168 QRS: -27 QRSD: 81 T: 0 QT: 372 QTc: 461 Interpretive Statements Sinus rhythm Anterolateral infarct, old Compared to ECG 12/10/2023 09:48:22 Myocardial infarct finding now present Electronically Signed On 07-18-2025 09:35:30 CDT by Leola Webb Please click the below link to view image of tracing.
--- NOTE | 2025-07-17 08:00 | NUR ---
ADMINISTERED PATIENTS HOME BP MED DUE TO ELEAVTED BLOOD PRESSURE OF 204/79, PATIENT RESTING IN BED, CALL LIGHT IN REACH
--- NOTE | 2025-07-17 08:59 | NUR ---
RECHECK WAS 176/72 AFTER ADMINISTRATION OF PATIENTS HOME BP MED, PATIENT RESTING IN BED, CALL LIGHT IN REACH
[2025-07-17] MEDS: FAMOTIDINE 20MG TAB PO SCH (09:34)
--- NOTE | 2025-07-17 09:49 | CONS ---
[facility] CARDIOLOGY CONSULTATION REPORT Cardiology consultation note dictated for Sergo Magallanes MD Primary bicycle i assembler: Marlen Whittington MD Date Patient Seen: Jul 17, 2025 Requesting Physician: Melinda Elliott MD Reason for Consultation: Hypertensive urgency History of Present Illness: This is an 89-year-old female with a past medical history of hypertension, hyperlipidemia, CT coronary calcification score of 474.8, coronary CTA on 09/27/2023 with a CAD-RADs: 4B with recommendations for a LHC, LHC/coronary angiogram on 12/13/2023 with 20-30% proximal stenosis of the LAD, 2D echo on 11/01/2023 with an LVEF of 55-60%, normal LV segmental wall motion, stage I diastolic dysfunction, with no valvular pathology, and bradycardia on carvedilol who presented to the ED with complaints of headache and elevated blood pressure for 2 days in duration. Laboratories revealed leukocytosis with WBC of 12.4K/uL on admission and urinalysis demonstrated small leukocytes. She is receiving Rocephin 1g IV daily. Cardiology has been consulted for hypertensive urgency. The patient endorsed a moderate to severe headache with neck discomfort for less than one week and on the day of admission, her home SBP reached 160-170's prompting her to seek medical attention. She reports her baseline home SBPs range 130-150's. Blood pressure on admission was 212/87mmHg. CTA of the head on 07/16/2025 was without acute abnormality. Cardiac enzymes were negative x2. EKG demonstrated NSR with a hr of 92bpm with no acute ischemia. BNP of 32. Home medications have not been reconciled. Past Medical History: As per HPI and summarized below Past Surgical History: Skin cancer excision 05/2025 Family History: The patient's mother had valve surgery and her father had cancer. Social History: The patient lives with her . Habits: The patient denies tobacco or illicit drug use and an occasional wine cooler consumption. Home Meds: Amlodipine-benazepril 5-40 mg daily Atorvastatin 20 mg nightly Current Meds: Medications Dose Ordered Sig/Arianna Start Time Stop Time Status Last Admin Acetaminophen 650 mg Q6H PRN 07/16/25 23:00 08/15/25 22:59 Acetaminophen 650 mg Q4H PRN 07/16/25 23:00 08/15/25 22:59 07/17/25 09:34 Nitroglycerin 0.4 mg PROTOCOL PRN 07/16/25 23:00 08/15/25 22:59 Famotidine 20 mg DAILY 07/17/25 09:00 08/16/25 08:59 07/17/25 09:34 Acetaminophen/ Hydrocodone Bitart 1 tab Q4H PRN 07/16/25 23:00 07/21/25 22:59 07/17/25 03:55 Hydralazine HCl 10 mg Q6H PRN 07/16/25 23:00 08/15/25 22:59 Magnesium Sulfate 50 ml @ 0 mls/hr PROTOCOL PRN 07/16/25 23:00 08/15/25 22:59 Potassium Chloride 100 ml @ 100 mls/hr AD PRN 07/16/25 23:00 08/15/25 22:59 Potassium Chloride 20 meq AD PRN 07/16/25 23:00 08/15/25 22:59 Potassium Chloride 20 meq AD PRN 07/16/25 23:00 08/15/25 22:59 Labetalol HCl 10 mg Q6H PRN 07/16/25 23:00 08/15/25 22:59 07/17/25 00:45 Ceftriaxone Sodium 1 gm Q24H 07/16/25 23:30 07/26/25 23:29 07/17/25 00:44 Review of Systems: CONST: Admits to headache and neck discomfort. EYES: No recent vision problems. ENT: No congestion, ear pain, or sore throat. C/V: No chest pain, palpitations, or edema. RESP: No cough, congestion, wheezing or shortness of breath. GI: No abdominal pain, nausea, vomiting, constipation, or diarrhea. : No incontinence or dysuria. SKIN: No rash. NEURO: No headache, focal numbness or weakness, dizziness, or seizures. PSYCH: No depression or anxiety. HEME: No abnormal bruising or bleeding. LYMPH: No swollen glands. Physical Examination: GENERAL: No acute distress. HEAD: Normal with no signs of head trauma. EYES: PERRLA, EOMI, conjunctiva and sclera normal. ENT: Hearing grossly intact, normal oropharynx. NECK: Supple without JVD. Normal carotid upstrokes without bruits. Limited ROM noted. LUNGS: Clear breath sounds bilaterally. No wheezes, or rhonchi. HEART: Normal rate and rhythm. Normal S1 and S2 without murmurs, gallop or rub. VASC: Peripheral pulses +2 bilaterally. ABD: Bowel sounds normal, soft, nontender, no masses, no organomegaly. No audible bruits. : Not examined LYMPH: No lymphadenopathy noted. EXT: No clubbing, cyanosis or edema. SKIN: No rashes or lesions noted. NEURO: Awake, alert, and oriented x3. No focal sensory or strength deficits noted. Vital Signs (last 8hr) Date Time Temp Pulse Resp B/P (MAP) Pulse Ox O2 Delivery O2 Flow Rate FiO2 07/17/25 08:56 98.1 76 18 204/79 98 Room Air* 0 21 07/17/25 05:44 98.1 63 20 147/67 97 Room Air* 0 21 07/17/25 05:05 98.1 64 20 151/63 97 Room Air* 0 21 07/17/25 04:10 98.2 72 20 180/66 99 Room Air* 0 21 Laboratory: Hematology Labs: Test 07/17/25 05:27 Range/Units White Blood Count 11.0 H 4.8-10.8 K/uL Red Blood Count 4.09 4.00-5.50 MIL/uL Hemoglobin 12.7 12.0-16.0 g/dL Hematocrit 37.9 36-48 % Mean Corpuscular Volume 92.7 79-99 fL Mean Corpuscular Hemoglobin 31.1 27.0-33.0 pg Mean Corpuscular Hemoglobin Concent 33.5 32.0-36.0 g/dL Red Cell Distribution Width 13.2 11.0-15.5 % Platelet Count 335 130-400 K/uL Mean Platelet Volume 9.8 7.5-10.5 fL Immature Granulocyte % (Auto) 0.3 0-1 % Neutrophils (%) (Auto) 78.9 H 40.0-77.0 % Lymphocytes (%) (Auto) 14.7 L 21.0-51.0 % Monocytes (%) (Auto) 5.4 3.0-13.0 % Eosinophils (%) (Auto) 0.5 0.0-8.0 % Basophils (%) (Auto) 0.2 0.0-5.0 % Neutrophils # (Auto) 8.7 H 1.8-7.7 K/uL Lymphocytes # (Auto) 1.6 1.0-4.8 K/uL Monocytes # (Auto) 0.6 0.1-1.0 K/uL Eosinophils # (Auto) 0.05 0.00-0.70 K/uL Basophils # (Auto) 0.02 0.00-0.20 K/uL Absolute Immature Granulocyte (auto 0.03 0-1 K/uL Nucleated Red Blood Cells 0.0 0.0-0.19 % Erythrocyte Sedimentation Rate 30 0-30 MM/HR Chemistry Labs: Test 07/17/25 05:27 07/16/25 19:49 Range/Units Sodium Level 143 136-145 mmol/L Potassium Level 4.8 3.5-5.1 mmol/L Chloride Level 107 101-111 mmol/L Carbon Dioxide Level 26 21-32 mmol/L Blood Urea Nitrogen 13 7-18 mg/dL Creatinine 0.6 0.5-1.0 mg/dL Glomerular Filtration Rate Calc 90 >90 mL/min Random Glucose 137 H 70-105 mg/dL Total Calcium 8.6 8.5-10.1 mg/dL Magnesium Level 1.60 L 1.80-2.40 mg/dL Total Bilirubin 0.4 0.2-1.0 mg/dL Aspartate Amino Transf (AST/SGOT) 28 10-37 U/L Alanine Aminotransferase (ALT/SGPT) 20 12-78 U/L Alkaline Phosphatase 109 50-136 U/L Troponin I High Sensitivity 32 4-50 ng/L Total Protein 6.7 6.0-8.3 g/dL Albumin 3.7 3.5-5.0 g/dL B-Type Natriuretic Peptide 81 0-100 pg/mL Coagulation Labs: Test 07/17/25 05:27 Range/Units Prothrombin Time 10.7 9.6-11.6 SEC Prothromb Time International Ratio 1.01 0.85-1.15 Activated Partial Thromboplast Time 27.8 26.3-35.5 SEC Diagnostics / Radiology: Impression and Plan: Hypertensive urgency Home SBP reached 160-170's She reports her baseline home SBPs range 130-150's Blood pressure on admission was 212/87mmHg CTA of the head on 07/16/2025 was without acute abnormality -She received her home Amlodipine-benazepril 5-40mg daily medication while in the ED this morning -Will add Amlodipine 5mg po x 1 now, then increase to 7.5mg daily -Discontinue Benazepril and transition to Losartan 100mg daily -Start Spironolactone 50mg po x1 then 25mg daily -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 UTI Urinalysis 07/16/2025 demonstrated small leukocytes Leukocytosis with WBC of 12.4K/uL on admission, now 11.0K/uL -Continue Rocephin 1g IV daily Cervicalgia -Give Toradol 15mg IV x1 Comorbidities: Hyperlipidemia CT coronary calcification score of 474.8 Coronary CTA on 09/27/2023 with a CAD-RADs: 4B with recommendations for a LHC LHC/coronary angiogram on 12/13/2023 with 20-30% proximal stenosis of the LAD 2D echo on 11/01/2023 an LVEF of 55-60%, normal LV segmental wall motion, stage I diastolic dysfunction, and no valvular pathology Bradycardia on Carvedilol PHYSICIAN ATTESTATION OF PHYSICIAN PYROTECHNICS PRESS TENDER DOCUMENTATION: I attest that I was physically present for the logan portions of the service and evaluated the patient with the Physician Project Buyer, and I reviewed and discussed the case with the Physician Project Buyer and made modifications to the Physician Project Buyer's findings and plans of care as documented above TRISTAN GARCIA Jul 17, 2025 09:49 SERGO MAGALLANES MD Jul 19, 2025 09:09
[2025-07-17] MEDS: amLODIPine 5 MG TAB PO ONE ×2 (10:59→11:04)
[2025-07-17] MEDS ORDERED: TRAM100T34 PO (11:09)
[2025-07-17] MEDS ORDERED: AMLO-143 PO (11:09)
[2025-07-17] MEDS: SPIRONOLACTONE 25 MG TAB PO ONE (12:58)
--- NOTE | 2025-07-17 13:40 | PN ---
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 She takes amlodipine 2.5mg and benazepril 40mg. Patient also reports she had a cardiac cath done last 11/2023 and was told all her coronaries are normal.On examination patient remained awake,alert and coherent,continue to complain of headache 5/10 pain level located around her occipital region.Patient denies dizziness,visual disturbance,fall incident,numbness or weakness.Patient denies chest pain,palpitation,cough ,nausea,vomiting and shortness of breath . Latest vital signs temperature 98.2, heart rate 72, blood pressure 180/75 saturation 99% on room air. Labs: WBC 12, hemoglobin 13, hematocrit 41, platelet count 344. Glucose 119 troponin six BNP 81 the rest of the chemistries normal. Urinalysis positive with esterase, urine RBC 2-5, urine WBC 2-5 with few urine bacteria. EKG result revealed sinus rhythm heart rate 92. CT head without contrast result revealed no acute intracranial abnormality. Diffuse age-related cerebral atrophy. Defined hypodensities in the bilateral periventricular and frontal white matter, likely representing chronic small-vessel ischemic changes. NIHS score=0 While in the ER patient received labetalol 10 mg IV, NS bolus 1 L, D- hydro mean 25 mg IV, Compazine 10 mg IV Tylenol 500 mg p.o. and Rocephin 1 g IV. The patient is admitted for further management. 07/17/2025: Patient is seen and evaluated in the ED. She is complaining of headache. Her blood pressure is 204/79 and blood pressure in the afternoon is 180/76. Her labs are in the normal range except for magnesium is 1.60. Urine cultures were sent. 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 REVIEW OF SYSTEMS CONSTITUTIONAL: Denies fevers, chills, or night sweats. No unintentional weight loss reported. NEUROLOGICAL: Complains of headache Deniesamaurosis fugax, motor weakness, sensory deficit, vertigo/spinning sensation, gait abnormalities, or tremors. ENT: No hearing loss, otalgia, otorrhea, rhinitis, rhinorrhea, hoarseness, or sore throat. CARDIOVASCULAR: Denies any exertional angina, dyspnea on exertion, orthopnea, paroxysmal nocturnal dyspnea, palpitations, life-threatening arrhythmias, claudication. PULMONARY: Denies any shortness of breath, cough, phlegm/sputum, hemoptysis, pleuritic chest pain. SLEEP: Denies morning headaches, daytime somnolence or napping. Denies diffic ulty falling asleep, staying asleep, waking from sleep. Denies knowledge of snoring. GASTROINTESTINAL: Denies any type of dysphagia to either liquids or solids. Denies nausea, vomiting, pyrosis, early satiety, abdominal pain, diarrhea, constipation, or changes in stool consistency or caliber. Denies coffee-ground emesis, hematemesis, hematochezia, or melanotic stools. GENITOURINARY: Denies frequency, urgency, nocturia, hematuria or incontinence (Storage/Irritative symptoms.) Low urinary stream, straining to void, urinary intermittency or hesitancy, splitting of the voiding stream, terminal dribbling. ENDOCRINOLOGIC: Denies polyuria, polydipsia, polyphagia or heat/cold into lerances. HEMATOLOGIC: Denies thrombophilia/previous clots, or coagulopathy/bleeding disorders. ONCOLOGIC: Denies personal history of malignancy. DERMATOLOGIC: Denies rashes or pruritus. PSYCHIATRIC: Denies any suicidal or homicidal ideation. Denies hallucinations. PHYSICAL EXAM GENERAL APPEARANCE: The patient is awake, alert, and oriented, in no acute cardiopulmonary distress. NEUROLOGICAL: Cranial nerves II-XII grossly intact. Motor is 5/5 in bilateral upper and lower extremities proximal to distal. No sensory deficits. HEENT: Face is symmetric. Pupils are equal and reactive. Extraocular movements are intact. NECK: Supple. No JVD. No thyromegaly. No submental, submandibular, pre- /postauricular, occipital or supraclavicular lymphadenopathy. CHEST: Normal chest expansion. No Telemetry. LUNGS: Absence of any rales, rhonchi or any wheezing. CARDIOVASCULAR: Regular. S1 and S2 normal. No appreciable rubs, murmurs or gallops. ABDOMEN: Soft, nontender, and nondistended. There is no rebound, voluntary guarding, or rigidity. : Deferred. No Garcia. EXTREMITIES: Non-edematous and not cyanotic. No clubbing. Good capillary refill. SKIN: No skin breakdown. Vital Signs (last 8hr) Date Time Temp Pulse Resp B/P (MAP) Pulse Ox O2 Delivery O2 Flow Rate FiO2 07/17/25 12:52 98.1 76 19 180/76 96 Room Air* 0 21 07/17/25 08:56 98.1 76 18 204/79 98 Room Air* 0 21 07/17/25 05:44 98.1 63 20 147/67 97 Room Air* 0 21 LABS: Laboratory: Test 07/17/25 05:27 07/16/25 19:51 07/16/25 19:49 Range/Units White Blood Count 11.0 H 4.8-10.8 K/uL Red Blood Count 4.09 4.00-5.50 MIL/uL Hemoglobin 12.7 12.0-16.0 g/dL Hematocrit 37.9 36-48 % Mean Corpuscular Volume 92.7 79-99 fL Mean Corpuscular Hemoglobin 31.1 27.0-33.0 pg Mean Corpuscular Hemoglobin Concent 33.5 32.0-36.0 g/dL Red Cell Distribution Width 13.2 11.0-15.5 % Platelet Count 335 130-400 K/uL Mean Platelet Volume 9.8 7.5-10.5 fL Immature Granulocyte % (Auto) 0.3 0-1 % Neutrophils (%) (Auto) 78.9 H 40.0-77.0 % Lymphocytes (%) (Auto) 14.7 L 21.0-51.0 % Monocytes (%) (Auto) 5.4 3.0-13.0 % Eosinophils (%) (Auto) 0.5 0.0-8.0 % Basophils (%) (Auto) 0.2 0.0-5.0 % Neutrophils # (Auto) 8.7 H 1.8-7.7 K/uL Lymphocytes # (Auto) 1.6 1.0-4.8 K/uL Monocytes # (Auto) 0.6 0.1-1.0 K/uL Eosinophils # (Auto) 0.05 0.00-0.70 K/uL Basophils # (Auto) 0.02 0.00-0.20 K/uL Absolute Immature Granulocyte (auto 0.03 0-1 K/uL Nucleated Red Blood Cells 0.0 0.0-0.19 % Erythrocyte Sedimentation Rate 30 0-30 MM/HR Prothrombin Time 10.7 9.6-11.6 SEC Prothromb Time International Ratio 1.01 0.85-1.15 Activated Partial Thromboplast Time 27.8 26.3-35.5 SEC Sodium Level 143 136-145 mmol/L Potassium Level 4.8 3.5-5.1 mmol/L Chloride Level 107 101-111 mmol/L Carbon Dioxide Level 26 21-32 mmol/L Blood Urea Nitrogen 13 7-18 mg/dL Creatinine 0.6 0.5-1.0 mg/dL Glomerular Filtration Rate Calc 90 >90 mL/min Random Glucose 137 H 70-105 mg/dL Total Calcium 8.6 8.5-10.1 mg/dL Magnesium Level 1.60 L 1.80-2.40 mg/dL Total Bilirubin 0.4 0.2-1.0 mg/dL Aspartate Amino Transf (AST/SGOT) 28 10-37 U/L Alanine Aminotransferase (ALT/SGPT) 20 12-78 U/L Alkaline Phosphatase 109 50-136 U/L Troponin I High Sensitivity 32 4-50 ng/L Total Protein 6.7 6.0-8.3 g/dL Albumin 3.7 3.5-5.0 g/dL Urine Color COLORLESS YELLOW Urine Appearance CLEAR CLEAR Urine pH 5.0 5.0-8.0 Urine Specific [place] 1.009 1.001-1.031 Urine Protein NEGATIVE NEGATIVE mg/dL Urine Glucose (UA) NEGATIVE NEGATIVE mg/dL Urine Ketones NEGATIVE NEGATIVE mg/dL Urine Occult Blood SMALL H NEGATIVE Urine Nitrate NEGATIVE NEGATIVE Urine Bilirubin NEGATIVE NEGATIVE mg/dL Urine Urobilinogen 0.2 0.2-1.0 mg/dL Urine Leukocyte Esterase 75 H NEGATIVE Unique/uL Urine RBC 2-5 H 0-1 /HPF Urine WBC 2-5 H 0-1 /HPF Urine Squamous Epithelial Cells RARE 0-2 /HPF Urine Bacteria FEW None Seen /HPF B-Type Natriuretic Peptide 81 0-100 pg/mL Current Medications Medications (Trade) Dose Ordered Sig/Arianna Route PRN Reason Start Time Stop Time Status Last Admin Dose Admin Acetaminophen (TYLenol 325MG TAB) 650 mg Q4H PRN PO MILD PAIN (1-3) 07/16/25 23:00 08/15/25 22:59 07/17/25 09:34 650 MG Acetaminophen (TYLenol 325MG TAB) 650 mg Q6H PRN PO TEMPERATURE GREATER THAN 101.5 07/16/25 23:00 08/15/25 22:59 Acetaminophen/ Hydrocodone Bitart (NORco 5/325MG) 1 tab Q4H PRN PO MODERATE PAIN (4-6) 07/16/25 23:00 07/21/25 22:59 07/17/25 03:55 1 TAB Amlodipine Besylate (NorvASC 5MG TAB) 7.5 mg DAILY PO 07/18/25 09:00 08/17/25 08:59 Amlodipine Besylate (NorvASC 5MG TAB) 10 mg DAILY PO 07/18/25 09:00 07/17/25 12:50 DC Benazepril HCl (LoTENSin) 40 mg DAILY PO 07/18/25 09:00 07/17/25 12:50 DC Ceftriaxone Sodium 2 gm/ Sodium Chloride 100 ml @ 200 mls/hr Q24H IV 07/16/25 23:00 07/16/25 23:25 DC Ceftriaxone Sodium (ROCEphine 1G INJ) 1 gm Q24H IVPB 07/16/25 23:30 07/26/25 23:29 07/17/25 00:44 1 GM Famotidine (Pepcid 20mg Tab) 20 mg DAILY PO 07/17/25 09:00 08/16/25 08:59 07/17/25 09:34 20 MG Hydralazine HCl (APRESOLine 20MG INJ) 10 mg Q6H PRN IV For:SBP above 160;DBP above 90 07/16/25 23:00 08/15/25 22:59 Ketorolac Tromethamine (toRADol) 15 mg ONCE STAT IV 07/17/25 10:12 07/17/25 10:16 DC 07/17/25 10:59 15 MG Ketorolac Tromethamine (toRADol) 15 mg ONCE STAT IV 07/17/25 10:39 07/17/25 10:45 DC Labetalol HCl (TRANdate 20MG SYG) 10 mg Q6H PRN IV IF SBP GREATER THAN 170 07/16/25 23:00 08/15/25 22:59 07/17/25 00:45 10 MG Lisinopril (Prinivil 40mg) 40 mg DAILY PO 07/18/25 09:00 07/17/25 10:37 DC Losartan Potassium (CozAAR 100MG TAB) 100 mg DAILY PO 07/18/25 09:00 08/17/25 08:59 Magnesium Sulfate 50 ml @ 0 mls/hr PROTOCOL PRN IV OTHER [SEE ORDER COMMENTS] 07/16/25 23:00 08/15/25 22:59 Nitroglycerin (Nitrostat) 0.4 mg PROTOCOL PRN SL CHEST PAIN 07/16/25 23:00 08/15/25 22:59 Potassium Chloride 100 ml @ 100 mls/hr AD PRN IV POTASSIUM PROTOCOL 07/16/25 23:00 08/15/25 22:59 Potassium Chloride (K-Dur/Klor-Con 20meq) 20 meq AD PRN PO POTASSIUM PROTOCOL 07/16/25 23:00 08/15/25 22:59 Potassium Chloride (KCl 10% Elixir 20meq/15ml) 20 meq AD PRN PO POTASSIUM PROTOCOL 07/16/25 23:00 08/15/25 22:59 Spironolactone (Aldactone 25mg) 25 mg DAILY PO 07/18/25 09:00 08/17/25 08:59 DIAGNOSTICS / RADIOLOGY: [place] [id number] [place] [place] [id number] IMAGING REPORT Signed PATIENT: OK VAUGHN V MR#: [id number] : 1940 SEX: F AGE: 84 LOCATION: ED ORDER 36 STATUS: REG ER REPORT#: [id number] SERVICE 35 REASON: SEVERE OCCIPITAL HEADACHE FOR TWO DAYS ORDERING PHYSICIAN: LAWANDA FOX NP PROCEDURE: HEAD WO - CT HEAD/BRAIN W/O CONTRAST EXAM: CT Head Without IV contrast. CLINICAL HISTORY: Severe occipital headache for 2 days. TECHNIQUE: Axial computed tomography images of the head/brain without intravenous contrast. COMPARISON: None provided. FINDINGS: BRAIN: Diffuse age-related cerebral atrophy, characterized by dilatation of the lateral ventricles, prominence of the basal cisterns, cortical sulci, and bilateral sylvian fissures. Ill-defined hypodensities in the bilateral periventricular and frontal white matter, likely representing chronic small vessel ischemic changes. No evidence of acute hemorrhage. No mass lesion. No CT evidence for acute territorial infarct. No midline shift or extra-axial collections. VENTRICLES: No hydrocephalus. ORBITS: The orbits are unremarkable. SINUSES AND MASTOIDS: The paranasal sinuses and mastoid air cells are clear. BONES: No fracture. SOFT TISSUES: Unremarkable. IMPRESSION: No acute intracranial abnormality. Diffuse age-related cerebral atrophy. Ill-defined hypodensities in the bilateral periventricular and frontal white matter, likely representing chronic small vessel ischemic changes. /[place] DICTATED BY: BERTHA NEUMANN Jr., MD DATE: 07/16/252251 ELECTRONICALLY SIGNED BY: BERTHA NEUMANN Jr., MD DATE: 07/16/252251 ASSESSMENT: Hypertensive urgency POA Acute urinary tract infection POA Tension headache POA Hyperlipidemia POA Hypomagnesemia PLAN: Hypertensive urgency POA Today her blood pressure is 204/79, repeat blood pressure is 180/76. She takes amlodipine 2.5mg and benazepril 40mg at home. 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 Avoid foods rich in sodium. Her blood pressure will be monitored. Acute urinary tract infection POA Her urinalysis show trace occult blood, leukocyte esterase 75, RBC is 2 to 5, WBC 2 to 5. Urine is sent for culture. She is started on ceftriaxone 1g. Continue ceftriaxone (day 1). Tension headache POA She is complaining of headache. Continue IV acetaminophen PRN. Hyperlipidemia POA Continue Atorvastatin. Ordered lipid panel. Hypomagnesemia Today her labs show that her magnesium level is 1.60. We replaced the magnesium. Will repeat her labs tomorrow. She is started on heart healthy diet. Gi prophylaxis with famotidine. DVT prophylaxis with SCD. ATTESTATION BY PHYSICIAN I have seen and examined the patient. I reviewed the documentation, medical decision making, and treatment plan as noted by the resident provider above. I agree with the findings and plan of care. Yong Li MD, AKSHAY MD Jul 17, 2025 13:40
--- NOTE | 2025-07-17 13:49 | NUR ---
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 Pt reports se remains active and independent of self care, home management, meal prep. t uses no DME or HH at this time. PCP is Sonja Camp and Marlen Whittington. Pt denies need for SNf, wants to reurn home at dc Addendum: 07/17/25 at 1354 by BRIAN LOPEZ SS Amended: Links added.
--- NOTE | 2025-07-17 14:31 | NUR ---
CALLED AND GAVE REPORT TO JANELLE LANDEROS RN SENT WITH PATIENT
[2025-07-17 15:00] VITALS: BP 162/48; PULSE 85; RESP 20; TEMP 98.7
[2025-07-17 15:19] VITALS: O2SAT 99
[2025-07-17 17:31] VITALS: BP 156/64; PULSE 84
[2025-07-17] MEDS: MAGNESIUM 2GM PREMIX 50ML 50 ML IV PRN (18:35)
[2025-07-17 19:52] VITALS: BP 154/74; PULSE 96; RESP 18; TEMP 98
[2025-07-17 20:40] VITALS: O2SAT 95
[2025-07-17 23:37] VITALS: BP 182/77; PULSE 89; RESP 18; TEMP 97.8
[2025-07-18 01:00] VITALS: BP 147/66
[2025-07-18 03:59] VITALS: BP 145/69; PULSE 78; RESP 18; TEMP 97.6
[2025-07-18 05:12] LABS: NUCLEATED RED BLOOD CELLS 0.0 % (0.0-0.19); PLATELET COUNT (AUTO) 353.0 K/uL (130-400); RED BLOOD CELL COUNT(AUTO) 4.27 MIL/uL (4.00-5.50); RED CELL DISTRIBUTION WIDTH 13.5 % (11.0-15.5); WHITE BLOOD COUNT (AUTO) 13.1 K/uL (4.8-10.8)
[2025-07-18 05:44] LABS: ASPARTATE AMINOTRANSFERASE 16.0 U/L (10-37); CREATININE 0.7 mg/dL (0.5-1.0); GLOMERULAR FILTR. RATE CALC 86.0 mL/min (>90); GLUCOSE,RANDOM 129.0 mg/dL (70-105); LDL DIRECT 66.0 mg/dL (0-99); SODIUM SERUM 141.0 mmol/L (136-145); TOTAL PROTEIN, SERUM 7.2 g/dL (6.0-8.3); UREA NITROGEN, BLOOD 16.0 mg/dL (7-18)
[2025-07-18 08:00] VITALS: BP 154/75; PULSE 80; RESP 17; TEMP 97.8
--- NOTE | 2025-07-18 08:26 | PN ---
[facility] CARDIOLOGY PROGRESS NOTE Date Patient Seen: Jul 18, 2025 Time of Visit: 08:19 Interval History: This is an 89-year-old female with a past medical history of hypertension, hyperlipidemia, CT coronary calcification score of 474.8, coronary CTA on 09/27 with a CAD-RADs: 4B with recommendations for a LHC, LHC/coronary angiogram on 12/13/2023 with 20-30% proximal stenosis of the LAD, 2D echo on 11/01/2023 with an LVEF of 55-60%, normal LV segmental wall motion, stage I diastolic dysfunction, with no valvular pathology, and bradycardia on carvedilol who presented to the ED with complaints of headache and elevated blood pressure for 2 days in duration. Laboratories revealed leukocytosis with WBC of 12.4K/uL on admission and urinalysis demonstrated small leukocytes. She is receiving Rocephin 1g IV daily. The patient endorsed a moderate to severe headache with neck discomfort for less than one week and on the day of admission, her home SBP reached 160-170's prompting her to seek medical attention. She reports her baseline home SBPs range 130-150's. Blood pressure on admission was 212/87mmHg. CTA of the head on 07/16/2025 was without acute abnormality. Cardiac enzymes were negative x2. EKG demonstrated NSR with a hr of 92bpm with no acute ischemia. BNP of 32. Medications were adjusted to include amlodipine 7.5 mg daily, losartan 100 mg daily and the addition of [id number] mg p.o. daily. Overnight, she has had intermittent headache with blood pressure into the 180 systolic range. She received hydralazine PRN. She is just to receive her 2nd doses of her new regimen today. A bilateral renal artery Doppler exam has been done and results are currently pending. Physical Examination: GENERAL: No acute distress. HEAD: Normal with no signs of head trauma. EYES: PERRLA, EOMI, conjunctiva and sclera normal. NECK: Supple without JVD. There is no tenderness, lymphadenopathy, or masses. No thyromegaly. Normal carotid upstrokes without bruits. LUNGS: Clear breath sounds bilaterally. No wheezes, or rhonchi. HEART: Normal rate and rhythm. Normal S1 and S2 without murmurs, gallop or rub. VASC: Peripheral pulses +2 bilaterally. EXT: No clubbing, cyanosis or edema. NEURO: Awake, alert, and oriented x3. No focal neurological deficits noted. Laboratory: Hematology Labs: Test 07/18/25 04:47 07/17/25 05:27 Range/Units White Blood Count 13.1 H 4.8-10.8 K/uL Red Blood Count 4.27 4.00-5.50 MIL/uL Hemoglobin 12.9 12.0-16.0 g/dL Hematocrit 39.3 36-48 % Mean Corpuscular Volume 92.0 79-99 fL Mean Corpuscular Hemoglobin 30.2 27.0-33.0 pg Mean Corpuscular Hemoglobin Concent 32.8 32.0-36.0 g/dL Red Cell Distribution Width 13.5 11.0-15.5 % Platelet Count 353 130-400 K/uL Mean Platelet Volume 9.5 7.5-10.5 fL Nucleated Red Blood Cells 0.0 0.0-0.19 % Immature Granulocyte % (Auto) 0.3 0-1 % Neutrophils (%) (Auto) 78.9 H 40.0-77.0 % Lymphocytes (%) (Auto) 14.7 L 21.0-51.0 % Monocytes (%) (Auto) 5.4 3.0-13.0 % Eosinophils (%) (Auto) 0.5 0.0-8.0 % Basophils (%) (Auto) 0.2 0.0-5.0 % Neutrophils # (Auto) 8.7 H 1.8-7.7 K/uL Lymphocytes # (Auto) 1.6 1.0-4.8 K/uL Monocytes # (Auto) 0.6 0.1-1.0 K/uL Eosinophils # (Auto) 0.05 0.00-0.70 K/uL Basophils # (Auto) 0.02 0.00-0.20 K/uL Absolute Immature Granulocyte (auto 0.03 0-1 K/uL Erythrocyte Sedimentation Rate 30 0-30 MM/HR Chemistry Labs: Test 07/18/25 04:47 07/17/25 05:27 07/16/25 19:49 Range/Units Sodium Level 141 136-145 mmol/L Potassium Level 3.9 3.5-5.1 mmol/L Chloride Level 105 101-111 mmol/L Carbon Dioxide Level 24 21-32 mmol/L Blood Urea Nitrogen 16 7-18 mg/dL Creatinine 0.7 0.5-1.0 mg/dL Glomerular Filtration Rate Calc 86 >90 mL/min Random Glucose 129 H 70-105 mg/dL Total Calcium 9.2 8.5-10.1 mg/dL Magnesium Level 2.20 1.80-2.40 mg/dL Total Bilirubin 0.5 # 0.2-1.0 mg/dL Aspartate Amino Transf (AST/SGOT) 16 10-37 U/L Alanine Aminotransferase (ALT/SGPT) 18 12-78 U/L Alkaline Phosphatase 110 50-136 U/L Total Protein 7.2 6.0-8.3 g/dL Albumin 3.6 3.5-5.0 g/dL Triglycerides Level 56 30-200 mg/dL Cholesterol Level 123 <200 mg/dL LDL Cholesterol 66 0-99 mg/dL HDL Cholesterol 47 35-85 mg/dL Troponin I High Sensitivity 32 4-50 ng/L B-Type Natriuretic Peptide 81 0-100 pg/mL Coagulation Labs: Test 07/17/25 05:27 Range/Units Prothrombin Time 10.7 9.6-11.6 SEC Prothromb Time International Ratio 1.01 0.85-1.15 Activated Partial Thromboplast Time 27.8 26.3-35.5 SEC Diagnostics / Radiology: Bilateral renal artery Doppler exam is currently pending Impression and Plan: Hypertensive urgency: CTA of the head on 07/16/2025 was without acute abnormality: -continue with increased dose of amlodipine 7.5 mg p.o. daily -benazepril has been discontinued and transitioned to losartan 100 mg p.o. daily -continue [id number] mg daily -follow-up on bilateral renal artery Doppler exam. If renal artery Doppler exam is negative, she will be cleared for discharge home from cardiology standpoint -arrange follow-up with Dr. Marlen Whittington in one-week after discharge with blood pressure log UTI Urinalysis 07/16/2025 demonstrated small leukocytes -Continue Rocephin 1g IV daily Cervicalgia: -analgesics as needed and consider C-spine imaging if persists Comorbidities: Hyperlipidemia CT coronary calcification score of 474.8 Coronary CTA on 09/27/2023 with a CAD-RADs: 4B with recommendations for a LHC LHC/coronary angiogram on 12/13/2023 with 20-30% proximal stenosis of the LAD 2D echo on 11/01/2023 an LVEF of 55-60%, normal LV segmental wall motion, stage I diastolic dysfunction, and no valvular pathology Bradycardia on Carvedilol If bilateral renal artery Doppler exam is unremarkable, we will clear patient for discharge from cardiology standpoint Home with amlodipine 7.5 mg p.o. daily, losartan 100 mg daily and spironolactone 25 mg p.o. daily Follow-up with Dr. Marlen Whittington in 1 week with blood pressure readings from home PHYSICIAN ATTESTATION OF PHYSICIAN CLAIM TECHNICIAN DOCUMENTATION: I attest that I was physically present for the logan portions of the service and evaluated the patient with the Physician Motor Block Mechanic, and I reviewed and discussed the case with the Physician Motor Block Mechanic and made modifications to the Physician Motor Block Mechanic's findings and plans of care as documented above MARCIA MILLER Jul 18, 2025 08:26 CHERI IBARRA MD Jul 19, 2025 09:08
[2025-07-18] MEDS ORDERED: LISINOPRIL 40 MG TABLET PO SCH (09:00)
[2025-07-18] MEDS ORDERED: amLODIPine 5 MG TAB PO SCH (09:00)
[2025-07-18] MEDS: SPIRONOLACTONE 25 MG TAB PO SCH (09:04)
[2025-07-18] MEDS: amLODIPine 5 MG TAB PO SCH (09:07)
[2025-07-18 10:25] VITALS: O2SAT 95
--- NOTE | 2025-07-18 10:54 | HMCIMG ---
EXAM: Renal Artery Duplex Doppler Ultrasound CLINICAL HISTORY: Resistant hypertension. Evaluate for renal artery stenosis. TECHNIQUE: Real-time duplex Doppler evaluation of the bilateral renal arteries, segmental arteries, kidneys, and aorta with color and spectral waveform analysis. COMPARISON: None provided. FINDINGS: AORTA: Peak systolic velocity (PSV): 145 cm/s. RIGHT KIDNEY: Measures 10.0 ??? 4.0 ??? 3.8 cm. PSV (main renal artery): 138 cm/s. Renal-aortic ratio (RAR): 1.0. Segmental arteries (superior, mid, and inferior poles): Waveforms within normal limits. No tardus-parvus pattern. LEFT KIDNEY: Measures 9.8 ??? 5.3 ??? 4.1 cm. PSV (main renal artery): 197 cm/s. RAR: 1.4. Segmental arteries (superior, mid, and inferior poles): Waveforms within normal limits. No tardus-parvus pattern. BLADDER: Not fully distended (wall 1.5 mm). Visualization is limited by bowel gas and intestinal air. IMPRESSION: No sonographic evidence of hemodynamically significant renal artery stenosis. Both kidneys are normal in size with preserved intrarenal arterial waveforms. /[place]
[2025-07-18 12:00] VITALS: BP 152/59; PULSE 67; RESP 17; TEMP 97.6
[2025-07-18] MEDS ORDERED: LOSA100T59 PO (13:49)
[2025-07-18] MEDS ORDERED: SPIR25TA6 PO (13:49)
[2025-07-18] MEDS ORDERED: AMLO-257 PO (13:49)
[2025-07-18] MEDS ORDERED: AMLO2.5T4 PO (13:49)
[2025-07-18] MEDS ORDERED: AMOX-426 PO (15:40)
--- NOTE | 2025-07-18 17:10 | DS ---
Discharge Summary Hospital Course Summary: Patient information: Name: Blanca Silver V Date of : 1940 Admission date: 07/16/2025 Attending physician: Dr. Josh Pittman Admitting diagnosis: Hypertensive urgency POA Acute urinary tract infection POA Tension headache POA Hyperlipidemia POA Course in hospital: This is an 84 year old female ,a reliable historian with past medical history of hypertension and hyperlipidemia who presents to the ED with complaints of elevated blood pressure and severe headache onset 2 days ago.Patient reports initially pain was tolerable but has gradually increasing as days progressed and today she described pain as excruciating so she decided to come to the Ed for evaluation.Patient reports her document imaging specialist is and had seen her 2 months ago and had adjusted her medication for BP. She takes amlodipine 2.5mg and benazepril 40mg. Patient also reports she had a cardiac cath done last 11/2023 and was told all her coronaries are normal.On examination patient remained awake,alert and coherent,continue to complain of headache 5/10 pain level located around her occipital region.Patient denies dizziness,visual disturbance,fall incident,numbness or weakness.Patient denies chest pain,palpitation,cough ,nausea,vomiting and shortness of breath . Latest vital signs temperature 98.2, heart rate 72, blood pressure 180/75 saturation 99% on room air. Labs: WBC 12, hemoglobin 13, hematocrit 41, platelet count 344. Glucose 119 troponin six BNP 81 the rest of the chemistries normal. Urinalysis positive with esterase, urine RBC 2-5, urine WBC 2-5 with few urine bacteria. EKG result revealed sinus rhythm heart rate 92. CT head without contrast result revealed no acute intracranial abnormality. Diffuse age-related cerebral atrophy. Defined hypodensities in the bilateral periventricular and frontal white matter, likely representing chronic small-vessel ischemic changes. NIHS score=0 While in the ER patient received labetalol 10 mg IV, NS bolus 1 L, D-hydro mean 25 mg IV, Compazine 10 mg IV Tylenol 500 mg p.o. and Rocephin 1 g IV. The patient was admitted for further management. Urine culture was sent and it showed 10,000 to 46211 CFU. 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 With the changes in the medications had blood pressure is in the normal range. Bilateral renal artery Doppler showed no evidence of hemodynamically significant renal artery stenosis. On 07/18/2025, complained of cervical pain from occipital region to the neck, vitals are in the normal range and labs are normal except for WBC is 13.1. Her cervical pain is controlled with Tylenol. Cardiology cleared the patient for discharge and advised him to follow-up in their clinic. She is medically stable and ready for discharge. So we discharged her. Principal Biostatistician(s): CONSULTATION REPORT Name: BLANCA SILVER V Acct: [id number] MR: [id number] : 1940 Admit Date: 07/16/25 TRISTAN GARCIA [facility] [address] [place] [address] [id number] [facility] CARDIOLOGY CONSULTATION REPORT Cardiology consultation note dictated for Sergo Magallanes MD Primary document imaging specialist: Marlen Whittington MD Date Patient Seen: Jul 17, 2025 Requesting Physician: Patricio Elliott MD Reason for Consultation: Hypertensive urgency History of Present Illness: This is an 89-year-old female with a past medical history of hypertension, hyp erlipidemia, CT coronary calcification score of 474.8, coronary CTA on 09/27/2023 with a CAD-RADs: 4B with recommendations for a LHC, LHC/coronary angiogram on 12/13/2023 with 20-30% proximal stenosis of the LAD, 2D echo on 11/01/2023 with an LVEF of 55-60%, normal LV segmental wall motion, stage I diastolic dysfunction, with no valvular pathology, and bradycardia on carvedilol who presented to the ED with complaints of headache and elevated blood pressure for 2 days in duration. Laboratories revealed leukocytosis with WBC of 12.4K/uL on admission and urinalysis demonstrated small leukocytes. She is receiving Rocephin 1g IV daily. Cardiology has been consulted for hypertensive urgency. The patient endorsed a moderate to severe headache with neck discomfort for less than one week and on the day of admission, her home SBP reached 160-170's prompting her to seek medical attention. She reports her baseline home SBPs range 130-150's. Blood pressure on admission was 212/87mmHg. CTA of the head on 07/16/2025 was without acute abnormality. Cardiac enzymes were negative x2. EKG demonstrated NSR with a hr of 92bpm with no acute ischemia. BNP of 32. Home medications have not been reconciled. Past Medical History: As per HPI and summarized below Past Surgical History: Skin cancer excision 05/2025 Family History: The patient's mother had valve surgery and her father had cancer. Social History: The patient lives with her . Habits: The patient denies tobacco or illicit drug use and an occasional wine cooler consumption. Home Meds: Amlodipine-benazepril 5-40 mg daily Atorvastatin 20 mg nightly Current Meds: Medications Dose Ordered Sig/Arianna Start Time Stop Time Status Last Admin Acetaminophen 650 mg Q6H PRN 07/16/25 23:00 08/15/25 22:59 Acetaminophen 650 mg Q4H PRN 07/16/25 23:00 08/15/25 22:59 07/17/25 09:34 Nitroglycerin 0.4 mg PROTOCOL PRN 07/16/25 23:00 08/15/25 22:59 Famotidine 20 mg DAILY 07/17/25 09:00 08/16/25 08:59 07/17/25 09:34 Acetaminophen/ Hydrocodone Bitart 1 tab Q4H PRN 07/16/25 23:00 07/21/25 22:59 07/17/25 03:55 Hydralazine HCl 10 mg Q6H PRN 07/16/25 23:00 08/15/25 22:59 Magnesium Sulfate 50 ml @ 0 mls/hr PROTOCOL PRN 07/16/25 23:00 08/15/25 22:59 Potassium Chloride 100 ml @ 100 mls/hr AD PRN 07/16/25 23:00 08/15/25 22:59 Potassium Chloride 20 meq AD PRN 07/16/25 23:00 08/15/25 22:59 Potassium Chloride 20 meq AD PRN 07/16/25 23:00 08/15/25 22:59 Labetalol HCl 10 mg Q6H PRN 07/16/25 23:00 08/15/25 22:59 07/17/25 00:45 Ceftriaxone Sodium 1 gm Q24H 07/16/25 23:30 07/26/25 23:29 07/17/25 00:44 Review of Systems: CONST: Admits to headache and neck discomfort. EYES: No recent vision problems. ENT: No congestion, ear pain, or sore throat. C/V: No chest pain, palpitations, or edema. RESP: No cough, congestion, wheezing or shortness of breath. GI: No abdominal pain, nausea, vomiting, constipation, or diarrhea. : No incontinence or dysuria. SKIN: No rash. NEURO: No headache, focal numbness or weakness, dizziness, or seizures. PSYCH: No depression or anxiety. HEME: No abnormal bruising or bleeding. LYMPH: No swollen glands. Physical Examination: GENERAL: No acute distress. HEAD: Normal with no signs of head trauma. EYES: PERRLA, EOMI, conjunctiva and sclera normal. ENT: Hearing grossly intact, normal oropharynx. NECK: Supple without JVD. Normal carotid upstrokes without bruits. Limited ROM noted. LUNGS: Clear breath sounds bilaterally. No wheezes, or rhonchi. HEART: Normal rate and rhythm. Normal S1 and S2 without murmurs, gallop or rub. VASC: Peripheral pulses +2 bilaterally. ABD: Bowel sounds normal, soft, nontender, no masses, no organomegaly. No audible bruits. : Not examined LYMPH: No lymphadenopathy noted. EXT: No clubbing, cyanosis or edema. SKIN: No rashes or lesions noted. NEURO: Awake, alert, and oriented x3. No focal sensory or strength deficits noted. Vital Signs (last 8hr) Date Time Temp Pulse Resp B/P (MAP) Pulse Ox O2 Delivery O2 Flow Rate FiO2 07/17/25 08:56 98.1 76 18 204/79 98 Room Air* 0 21 07/17/25 05:44 98.1 63 20 147/67 97 Room Air* 0 21 07/17/25 05:05 98.1 64 20 151/63 97 Room Air* 0 21 07/17/25 04:10 98.2 72 20 180/66 99 Room Air* 0 21 Laboratory: Hematology Labs: Test 07/17/25 05:27 Range/Units White Blood Count 11.0 H 4.8-10.8 K/uL Red Blood Count 4.09 4.00-5.50 MIL/uL Hemoglobin 12.7 12.0-16.0 g/dL Hematocrit 37.9 36-48 % Mean Corpuscular Volume 92.7 79-99 fL Mean Corpuscular Hemoglobin 31.1 27.0-33.0 pg Mean Corpuscular Hemoglobin Concent 33.5 32.0-36.0 g/dL Red Cell Distribution Width 13.2 11.0-15.5 % Platelet Count 335 130-400 K/uL Mean Platelet Volume 9.8 7.5-10.5 fL Immature Granulocyte % (Auto) 0.3 0-1 % Neutrophils (%) (Auto) 78.9 H 40.0-77.0 % Lymphocytes (%) (Auto) 14.7 L 21.0-51.0 % Monocytes (%) (Auto) 5.4 3.0-13.0 % Eosinophils (%) (Auto) 0.5 0.0-8.0 % Basophils (%) (Auto) 0.2 0.0-5.0 % Neutrophils # (Auto) 8.7 H 1.8-7.7 K/uL Lymphocytes # (Auto) 1.6 1.0-4.8 K/uL Monocytes # (Auto) 0.6 0.1-1.0 K/uL Eosinophils # (Auto) 0.05 0.00-0.70 K/uL Basophils # (Auto) 0.02 0.00-0.20 K/uL Absolute Immature Granulocyte (auto 0.03 0-1 K/uL Nucleated Red Blood Cells 0.0 0.0-0.19 % Erythrocyte Sedimentation Rate 30 0-30 MM/HR Chemistry Labs: Test 07/17/25 05:27 07/16/25 19:49 Range/Units Sodium Level 143 136-145 mmol/L Potassium Level 4.8 3.5-5.1 mmol/L Chloride Level 107 101-111 mmol/L Carbon Dioxide Level 26 21-32 mmol/L Blood Urea Nitrogen 13 7-18 mg/dL Creatinine 0.6 0.5-1.0 mg/dL Glomerular Filtration Rate Calc 90 >90 mL/min Random Glucose 137 H 70-105 mg/dL Total Calcium 8.6 8.5-10.1 mg/dL Magnesium Level 1.60 L 1.80-2.40 mg/dL Total Bilirubin 0.4 0.2-1.0 mg/dL Aspartate Amino Transf (AST/SGOT) 28 10-37 U/L Alanine Aminotransferase (ALT/SGPT) 20 12-78 U/L Alkaline Phosphatase 109 50-136 U/L Troponin I High Sensitivity 32 4-50 ng/L Total Protein 6.7 6.0-8.3 g/dL Albumin 3.7 3.5-5.0 g/dL B-Type Natriuretic Peptide 81 0-100 pg/mL Coagulation Labs: Test 07/17/25 05:27 Range/Units Prothrombin Time 10.7 9.6-11.6 SEC Prothromb Time International Ratio 1.01 0.85-1.15 Activated Partial Thromboplast Time 27.8 26.3-35.5 SEC Diagnostics / Radiology: Impression and Plan: Hypertensive urgency Home SBP reached 160-170's She reports her baseline home SBPs range 130-150's Blood pressure on admission was 212/87mmHg CTA of the head on 07/16/2025 was without acute abnormality -She received her home Amlodipine-benazepril 5-40mg daily medication while in the ED this morning -Will add Amlodipine 5mg po x 1 now, then increase to 7.5mg daily -Discontinue Benazepril and transition to Losartan 100mg daily -Start Spironolactone 50mg po x1 then 25mg daily -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 UTI Urinalysis 07/16/2025 demonstrated small leukocytes Leukocytosis with WBC of 12.4K/uL on admission, now 11.0K/uL -Continue Rocephin 1g IV daily Cervicalgia -Give Toradol 15mg IV x1 Comorbidities: Hyperlipidemia CT coronary calcification score of 474.8 Coronary CTA on 09/27/2023 with a CAD-RADs: 4B with recommendations for a C LHC/coronary angiogram on 12/13/2023 with 20-30% proximal stenosis of the LAD 2D echo on 11/01/2023 an LVEF of 55-60%, normal LV segmental wall motion, stage I diastolic dysfunction, and no valvular pathology Bradycardia on Carvedilol TRISTAN GARCIA Jul 17, 2025 09:49 Electronically Signed by: TRISTAN GARCIA [facility]07/17/25 1251 Electronically Co-Signed by: Procedure(s): [facility] [address] [place], [place] [address] IMAGING REPORT Signed PATIENT: BLANCA SILVER V MR#: [id number] : 1940 SEX: F AGE: 84 LOCATION: [facility] ORDER 36 STATUS: [facility] REPORT#: [id number] SERVICE 35 REASON: SEVERE OCCIPITAL HEADACHE FOR TWO DAYS ORDERING PHYSICIAN: LAWANDA FOX NP PROCEDURE: HEAD WO - CT HEAD/BRAIN W/O CONTRAST EXAM: CT Head Without IV contrast. CLINICAL HISTORY: Severe occipital headache for 2 days. TECHNIQUE: Axial computed tomography images of the head/brain without intravenous contrast. COMPARISON: None provided. FINDINGS: BRAIN: Diffuse age-related cerebral atrophy, characterized by dilatation of the lateral ventricles, prominence of the basal cisterns, cortical sulci, and bilateral sylvian fissures. Ill-defined hypodensities in the bilateral periventricular and frontal white matter, likely representing chronic small vessel ischemic changes. No evidence of acute hemorrhage. No mass lesion. No CT evidence for acute territorial infarct. No midline shift or extra-axial collections. VENTRICLES: No hydrocephalus. ORBITS: The orbits are unremarkable. SINUSES AND MASTOIDS: The paranasal sinuses and mastoid air cells are clear. BONES: No fracture. SOFT TISSUES: Unremarkable. IMPRESSION: No acute intracranial abnormality. Diffuse age-related cerebral atrophy. Ill-defined hypodensities in the bilateral periventricular and frontal white matter, likely representing chronic small vessel ischemic changes. /[place] DICTATED BY: BERTHA NEUMANN Jr., MD DATE: 07/16/252251 ELECTRONICALLY SIGNED BY: BERTHA NEUMANN Jr., MD DATE: 07/16/252251 [facility] [address] [place] [id number] IMAGING REPORT Signed PATIENT: BLANCA SILVER V MR#: [id number] : 1940 SEX: F AGE: 84 LOCATION: 2DH ORDER 2300 STATUS: ADM IN REPORT#: [id number] SERVICE 0600 REASON: RESISTENT HTN ORDERING PHYSICIAN: TRISTAN GARCIA PROCEDURE: MISSAEL ART DO - US RENAL ARTERY DOPPLER EXAM: Renal Artery Duplex Doppler Ultrasound CLINICAL HISTORY: Resistant hypertension. Evaluate for renal artery stenosis. TECHNIQUE: Real-time duplex Doppler evaluation of the bilateral renal arteries, segmental arteries, kidneys, and aorta with color and spectral waveform analysis. COMPARISON: None provided. FINDINGS: AORTA: Peak systolic velocity (PSV): 145 cm/s. RIGHT KIDNEY: Measures 10.0 ??? 4.0 ??? 3.8 cm. PSV (main renal artery): 138 cm/s. Renal-aortic ratio (RAR): 1.0. Segmental arteries (superior, mid, and inferior poles): Waveforms within normal limits. No tardus-parvus pattern. LEFT KIDNEY: Measures 9.8 ??? 5.3 ??? 4.1 cm. PSV (main renal artery): 197 cm/s. RAR: 1.4. Segmental arteries (superior, mid, and inferior poles): Waveforms within normal limits. No tardus-parvus pattern. BLADDER: Not fully distended (wall 1.5 mm). Visualization is limited by bowel gas and intestinal air. IMPRESSION: No sonographic evidence of hemodynamically significant renal artery stenosis. Both kidneys are normal in size with preserved intrarenal arterial waveforms. /[place] DICTATED BY: BERTHA NEUMANN Jr., MD DATE: 07/18/251152 ELECTRONICALLY SIGNED BY: BERTHA NEUMANN Jr., MD DATE: 07/18/251152 Assessment/Plan: DISCHARGE DIAGNOSIS: Hypertensive urgency POA, resolved Acute urinary tract infection POA Tension headache POA, resolved Cervicalgia Hyperlipidemia POA Hypomagnesemia, resolved ASSESSMENT/PLAN: Hypertensive urgency POA, resolved She takes amlodipine 2.5mg and benazepril 40mg at home. 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 It showed no evidence of medically significant renal artery stenosis. Her blood pressure is improved with the changes in the medications. Today her blood pressure is 152/59 Cardiology saw the patient and they cleared her for discharge. She is medically stable and we are discharging her, Advised to take Amlodipine 7.5mg daily, Losartan 100mg daily, Spironolactone 25mg daily. Avoid foods rich in sodium. Check your blood pressure regularly at home. Acute urinary tract infection POA Her urinalysis show trace occult blood, leukocyte esterase 75, RBC is 2 to 5, WBC 2 to 5. Urine is sent for culture and it showed 10,000 to 50,000 CFU. She is started on ceftriaxone 1g. Advised to take Augmentin. Tension headache POA, resolved She has no symptoms today. Cervicalgia, POA She complained of neck pain. Her pain is controlled with tylenol. Continue tylenol. Hyperlipidemia POA Her lipid panel is normal. Continue Atorvastatin. Hypomagnesemia, resolved Today her labs show that her magnesium level is 2.2. Discharge Instructions: Discharge date: 07/18/2025 Discharge instructions: 1) Please follow up with your primary care physician within 1 week upon discharge. 2) Please follow up with your Field Supervisor Dr. Whittington within 1 week upon. 3) You have been prescribed an antibiotic called Augmentin for your UTI, please take it as prescribed for 7 days. 4) There has been an adjustment to your blood pressure medications. Please take 7.5 Amlodipine daily, 100 mg Losartan daily, 25 mg Spironolactone daily. 5) Continue all medications as prescribed. Do not discontinue or change doses without consulting your PCP. 6) Gradually resume normal activities as tolerated. 7) Continue a balanced diet. 8) Seek immediate medical attention if you experience chest pain, SOB, or severe headache. 9) Avoid foods rich in sodium. 10)Check your blood pressure regularly at home. Discharge to: Home Condition on discharge: Stable Home Medications: Active Scripts Amoxicillin/Potassium Clav (Augmentin 500-125 Tablet) 500 Mg-125 Mg Tablet, 1 TAB PO BID for 7 Days, #14 TAB 0 Refills Prov:PATRICIO ELLIOTT MD 07/18/25 Losartan Potassium (Losartan Potassium) 100 Mg Tablet, 1 TAB PO DAILY for 30 Days, #30 TAB 0 Refills Prov:PATRICIO ELLIOTT MD 07/18/25 Spironolactone (Spironolactone) 25 Mg Tablet, 1 TAB PO DAILY for 30 Days, #30 TAB 0 Refills Prov:PATRICIO ELLIOTT MD 07/18/25 Amlodipine Besylate (Amlodipine Besylate) 5 Mg Tablet, 1 TAB PO DAILY for 30 Days, #30 TAB 0 Refills Prov:PATRICIO ELLIOTT MD 07/18/25 Amlodipine Besylate (Amlodipine Besylate) 2.5 Mg Tablet, 1 TAB PO DAILY for 30 Days, #30 TAB 0 Refills Prov:PATRICIO ELLIOTT MD 07/18/25 Reported Medications Tramadol HCl (Tramadol HCl ER) 100 Mg Tab.er.24h, 50 MG PO DAILY PRN for PAIN, TAB 07/17/25 Acetaminophen/Diphenhydramine (Tylenol Pm Exstr 500-25Mg Cplt) 500 Mg-25 Mg Tablet, 1 EACH PO HS, TAB 12/13/23 Atorvastatin Calcium (LIPITOR) 20 Mg Tab, 20 MG PO HS, TAB 12/10/23 Aspirin (Aspirin) 81 Mg Tab.chew, 81 MG PO AD, TAB.CHEW 12/10/23 Discontinued Reported Medications Amlodipine Besylate/Benazepril (Amlodipine-Benazepril 5-40 mg) 5 Mg-40 Mg Capsule, 1 CAP PO DAILY for 30 Days, #30 CAP 0 Refills 07/17/25 Lisinopril (Lisinopril) 20 Mg Tablet, 20 MG PO AD, TAB 12/10/23 New Medications: Amlodipine Besylate (Amlodipine Besylate) 2.5 Mg Tablet 1 TAB PO DAILY for 30 Days, #30 TAB 0 Refills Amlodipine Besylate (Amlodipine Besylate) 5 Mg Tablet 1 TAB PO DAILY for 30 Days, #30 TAB 0 Refills Amoxicillin/Potassium Clav (Augmentin 500-125 Tablet) 500 Mg-125 Mg Tablet 1 TAB PO BID for 7 Days, #14 TAB 0 Refills Losartan Potassium (Losartan Potassium) 100 Mg Tablet 1 TAB PO DAILY for 30 Days, #30 TAB 0 Refills Spironolactone (Spironolactone) 25 Mg Tablet 1 TAB PO DAILY for 30 Days, #30 TAB 0 Refills Continued Medications: Acetaminophen/Diphenhydramine (Tylenol Pm Exstr 500-25Mg Cplt) 500 Mg-25 Mg Tablet 1 EACH PO HS, TAB Aspirin (Aspirin) 81 Mg Tab.chew 81 MG PO AD, TAB.CHEW Atorvastatin Calcium (Lipitor) 20 Mg Tab 20 MG PO HS, TAB Tramadol HCl (Tramadol HCl ER) 100 Mg Tab.er.24h 50 MG PO DAILY PRN for PAIN, TAB Discontinued Medications: Amlodipine Besylate/Benazepril (Amlodipine-Benazepril 5-40 mg) 5 Mg-40 Mg Capsule 1 CAP PO DAILY for 30 Days, #30 CAP 0 Refills Lisinopril (Lisinopril) 20 Mg Tablet 20 MG PO AD, TAB Time spent arranging discharge: 1-30 minutes ATTESTATION BY PHYSICIAN I have seen and examined the patient. I reviewed the documentation, medical decision making, and treatment plan as noted by the resident provider above. I agree with the findings and plan of care. Josh Pittman IV, MD, AKSHAY MD Jul 18, 2025 17:10
[2025-07-19] MEDS ORDERED: amLODIPine 2.5 MG TAB PO SCH (09:00)
[2025-07-19] MEDS ORDERED: amLODIPine 5 MG TAB PO SCH (09:00)
== END 2025-07-18 16:20 | disposition home or self-care (01) ==
LOC: EDH 19:29 → EDHIP 22:59 → UNDOADMOB 22:59 → INTOOBSV 22:59 → 2DH 07-17 15:00 → EDHIP 07-17 15:00 → 2DH 07-18 07:00
PROVIDERS: ADMIT Internal Medicine; ATTEND Internal Medicine
DX: I16.0 Hypertensive urgency (principal); G44.209 Tension-type headache, unspecified, not intractable; I10 Essential (primary) hypertension; N39.0 Urinary tract infection, site not specified; I25.10 Atherosclerotic heart disease of native coronary artery without angina pectoris; E86.0 Dehydration; E83.42 Hypomagnesemia; E78.5 Hyperlipidemia, unspecified; Z79.899 Other long term (current) drug therapy; Z85.828 Personal history of other malignant neoplasm of skin; Z98.890 Other specified postprocedural states
CPT/HCPCS: 96375 ×4; 99285; 84484 ×2; 80048; 83880; 85025 ×2; 87086; 81001; 36415 ×3; 70450; 96365; 93005; 96376 ×2; 96366 ×2; 96367; 83735 ×2; 80053 ×2; 85610; 85730; 85651; 80061; 85027; 93975; J1200; J7030; J0780; J0696 ×3; J3475; J0360 ×2; J1885; G0378 ×9; J2405